=== PATIENT | male | born 1950 ===

== ENCOUNTER 2016-08-30 20:55 | Observation (INO) | payer MEDICARE ==
[2016-08-30 21:45] LABS: VENOUS BLOOD GAS BASE EXCESS 3.3 mmol/L (0.0-2.0); VENOUS BLOOD GAS PO2 94 mm/Hg (30-55); VENOUS BLOOD PH 7.39 (7.32-7.43)
--- NOTE | 2016-08-30 21:47 | ED PDOC ---
Arrival/HPI - General Chief Complaint: Shortness Of Breath Time Seen by Provider: 08/30/16 21:07 Historian: Patient - History of Present Illness Narrative History of Present Illness (Text): 08/30/16 21:42 A 66 year old male presents to the emergency department complaining of shortness of breath and fatigue for the past 2 weeks. Patient reports he went to the clinic and they told him his blood pressure was 50/90 and blood sugar was 182. Patient reports he almost passed out but denies any fall, chest pain or any other complaints at this time. Denies smoking. Symptom Onset: Sudden Symptom Course: Unchanged Activities at Onset: Rest Context: Home Past Medical History - Provider Review Nursing Documentation Reviewed: Yes - Infectious Disease Hx of Infectious Diseases: None - Tetanus Immunization Tetanus Immunization: Up to Date - Past Medical History Past Medical History: No Previous - Psychiatric Hx Psychophysiologic Disorder: No Hx Depression: No Hx Emotional Abuse: No Hx Physical Abuse: No Hx Substance Use: No - Past Surgical History Past Surgical History: No Previous - Anesthesia Hx Anesthesia: No Hx Anesthesia Reactions: No Hx Malignant Hyperthermia: No - Suicidal Assessment Feels Threatened In Home Enviroment: No Family/Social History - Physician Review Nursing Documentation Reviewed: Yes Family/Social History: No Known Family HX Smoking Status: Never Smoked Hx Alcohol Use: Yes Frequency of alcohol use: Socially Hx Substance Use: No Allergies/Home Meds Allergies/Adverse Reactions: Allergies No Known Allergies Allergy (Verified 05/09/16 21:36) Home Medications: Home Meds Medication Instructions Recorded Confirmed No Known Home Med 05/09/16 05/09/16 Review of Systems - Physician Review All systems were reviewed & negative as marked: Yes - Review of Systems Constitutional: Fatigue Respiratory: SOB Cardiovascular: absent: Chest Pain Physical Exam Vital Signs Reviewed: Yes Vital Signs Temp Pulse Resp BP Pulse Ox 08/31/16 01:55 68 18 151/82 H 95 08/30/16 23:24 98.0 F 69 18 129/81 98 08/30/16 22:55 65 18 132/79 93 L 08/30/16 20:55 98.2 F 70 18 129/81 96 Temperature: Afebrile Blood Pressure: Normal Pulse: Regular Respiratory Rate: Normal Appearance: Positive for: Well-Appearing, Non-Toxic, Comfortable Pain Distress: None Mental Status: Positive for: Alert and Oriented X 3 - Systems Exam Head: Present: Atraumatic, Normocephalic Pupils: Present: PERRL Extroacular Muscles: Present: EOMI Conjunctiva: Present: Normal Mouth: Present: Moist Mucous Membranes Neck: Present: Normal Range of Motion Respiratory/Chest: Present: Clear to Auscultation, Good Air Exchange. No: Respiratory Distress, Accessory Muscle Use Cardiovascular: Present: Regular Rate and Rhythm, Normal S1, S2. No: Murmurs Abdomen: Present: Normal Bowel Sounds. No: Tenderness, Distention, Peritoneal Signs Back: Present: Normal Inspection Upper Extremity: Present: Normal Inspection. No: Cyanosis, Edema Lower Extremity: Present: Normal Inspection. No: Edema Neurological: Present: GCS=15, CN II-XII Intact, Speech Normal Skin: Present: Warm, Dry, Normal Color. No: Rashes Psychiatric: Present: Alert, Oriented x 3, Normal Insight, Normal Concentration Medical Decision Making ED Course and Treatment: 08/30/16 21:40 Impression: A 66 year old male with shortness of breath and fatigue.left arm numbness will observe on tele for acs Differential Diagnosis included but are not limited to: Plan: -- EKG -- chest xray -- labs -- Reassess and disposition Prior Visits: Notes and results from previous visits were reviewed. Patient last reported to the emergency department on 04/14/16 for evaluation of lower back pain and right knee pain. Progress Notes: chest xray: No active disease, interpreted by me. EKG: Ordered, reviewed, and independently interpreted the EKG. Rate : 69 BPM Rhythm : NSR Interpretation : No ST-segment elevations or depressions, no T-wave inversions, normal intervals. 08/30/16 23:[address] Sandy, who agrees to admit patient to Tele obs. 08/31/16 05:13 - Lab Interpretations Lab Results: 08/30/16 21:30 08/30/16 21:30 Lab Results 08/30/16 21:30: D-Dimer, Quantitative 0.35 08/30/16 21:30: Sodium 142, Chloride 106, Potassium 3.6, Carbon Dioxide 27, Anion Gap 13, BUN 18, Creatinine 0.9, Est GFR ( Amer) > 60, Est GFR (Non- Af Amer) > 60, Random Glucose 95, Calcium 9.1, Total Bilirubin 0.7, AST 41, ALT 53, Alkaline Phosphatase 41, Lactate Dehydrogenase 493, Total Creatine Kinase 237 H, CK-MB (CK-2) 3.3, CK-MB (CK-2) % 1.4 L, Troponin I < 0.01, NT-Pro-B Natriuret Pep 140, Total Protein 7.1, Albumin 3.9, Globulin 3.1, Albumin/ Globulin Ratio 1.3 08/30/16 21:30: pO2 94 H, VBG pH 7.39, VBG pCO2 48.0, VBG HCO3 29.1 H, VBG Total CO2 30.6 H, VBG O2 Sat (Calc) 97.3 H, VBG Base Excess 3.3 H, VBG Potassium 3.6, Sodium 141.0, Chloride 108.0 H, Glucose 97, Lactate 1.5, FiO2 21.0, Venous Blood Potassium 3.6 08/30/16 21:30: WBC 6.7 D, RBC 4.15, Hgb 13.9 L, Hct 40.8 L, MCV 98.3, MCH 33.5 , MCHC 34.1, RDW 12.9, Plt Count 178, MPV 10.0, Gran % 58.6, Lymph % (Auto) 30.1 , [place] % (Auto) 9.0 H, Eos % (Auto) 2.0, Baso % (Auto) 0.3, Gran # 3.90, Lymph # 2.0, [place] # 0.6, Eos # 0.1, Baso # 0.02 I have reviewed the lab results: Yes - RAD Interpretation Radiology Orders: 08/30/16 21:20 CHEST PORTABLE [RAD] Stat - EKG Interpretation Interpreted by ED Physician: Yes Type: 12 lead EKG - Medication Orders Current Medication Orders: Acetaminophen (Tylenol 325mg Tab) 650 mg PO Q4H PRN PRN Reason: Pain, Mild (1-3) Discontinued Medications Aspirin (Ecotrin) 325 mg PO STAT STA Stop: 08/30/16 23:50 Last Admin: 08/31/16 00:19 Dose: 325 mg - Scribe Statement The provider has reviewed the documentation as recorded by the Marcia Cid Provider Scribe Attestation: All medical record entries made by the Nicholasibleonel were at my direction and personally dictated by me. I have reviewed the chart and agree that the record accurately reflects my personal performance of the history, physical exam, medical decision making, and the department course for this patient. I have also personally directed, reviewed, and agree with the discharge instructions and disposition. Disposition/Present on Arrival - Present on Arrival Any Indicators Present on Arrival: No History of DVT/PE: No History of Uncontrolled Diabetes: No Urinary Catheter: No History of Decub. Ulcer: No History Surgical Site Infection Following: None - Disposition Have Diagnosis and Disposition been Completed?: Yes Diagnosis: Coronary syndrome, acute Disposition: HOSPITALIZED Disposition Time: 22:00 Condition: FAIR
[2016-08-30 21:56] LABS: ALB/GLOB RATIO 1.3 (1.1-1.8); ALBUMIN 3.9 g/dL (3.0-4.8); ALT/SGPT 53 U/L (7-56); AST/SGOT 41 U/L (15-59); BLOOD UREA NITROGEN 18 mg/dL (7-21); CALCIUM 9.1 mg/dL (8.4-10.5); GFR AFRICAN-AMERICAN > 60; GFR NON-AFRICAN AMERICAN > 60
[2016-08-30 22:02] LABS: BASO # 0.02 K/mm3 (0.0-2.0); BASO % 0.3 % (0.0-3.0); EOS # 0.1 (0.0-0.7); GRAN % 58.6 % (50.0-68.0); HEMOGLOBIN 13.9 gm/dL (14.0-18.0); LYMPH % 30.1 % (22.0-35.0); MEAN CELL VOLUME 98.3 fL (80.0-105.0); MEAN CORPUSCULAR HEMOGLOBIN 33.5 pg (25.0-35.0); MEAN CORPUSCULAR HGB CONC 34.1 g/dl (31.0-37.0); MONO # 0.6 (0.1-0.6); PLATELET COUNT 178 10^3/uL (120.0-450.0); RBC 4.15 10^6/uL (3.5-6.1); RED CELL DISTRIBUTION WIDTH 12.9 % (11.5-14.5); WHITE BLOOD COUNT 6.7 10^3/ul (4.5-11.0)
[2016-08-30 22:07] LABS: B-TYPE NATRIURETIC PEPTIDE 140 pg/mL (0-450)
[2016-08-30 22:08] LABS: TROPONIN I < 0.01 ng/mL
[2016-08-30 22:11] LABS: CK-MB 3.3 ng/mL (0.0-3.6)
[2016-08-30] MEDS ORDERED: Aspirin 325 mg EC Tablets PO STA (23:49)
[2016-08-31 04:03] VITALS: RESP 20; BMI 39.2
[2016-08-31 10:37] LABS: ALB/GLOB RATIO 1.2 (1.1-1.8); ALBUMIN 3.6 g/dL (3.0-4.8); ALT/SGPT 43 U/L (7-56); AST/SGOT 41 U/L (15-59); BLOOD UREA NITROGEN 16 mg/dL (7-21); CALCIUM 8.9 mg/dL (8.4-10.5); GFR AFRICAN-AMERICAN > 60; GFR NON-AFRICAN AMERICAN > 60; HDL CHOLESTEROL 29 mg/dL (29-60)
[2016-08-31 10:48] LABS: LDL CHOLESTEROL 115 mg/dL (0-129)
[2016-08-31 10:57] LABS: FREE T4 1.06 ng/dL (0.78-2.19)
--- NOTE | 2016-08-31 11:14 | RAD ---
HISTORY: Shortness of breath COMPARISON: 04/04/2015. FINDINGS: LUNGS: No active pulmonary disease. PLEURA: No significant pleural effusion identified, no pneumothorax apparent. CARDIOVASCULAR: Cardiomegaly. No evidence of acute, significant cardiovascular disease. OSSEOUS STRUCTURES: No significant abnormalities. VISUALIZED UPPER ABDOMEN: Normal. OTHER FINDINGS: None. IMPRESSION: No active disease. No significant interval change compared to the prior examination(s).
[2016-08-31] MEDS ORDERED: Naproxen 550 mg Tab PO SCH (19:00)
--- NOTE | 2016-08-31 20:15 | CARD ---
APPROVED REPORT EKG Measurement Heart [id number] <Conclusion> Normal sinus rhythm Normal ECG
[2016-09-01 05:53] VITALS: O2SAT 94
--- NOTE | 2016-09-01 08:15 | CP.PCM.PN ---
Subjective - Date & Time of Evaluation Date of Evaluation: 09/01/16 Time of Evaluation: 07:00 - Subjective Subjective: Doing Well. No Chest Pain or Arm Pain. Objective - Vital Signs/Intake and Output Vital Signs (last 24 hours): Temp Pulse Resp BP Pulse Ox 97.9 F 59 L 20 139/84 94 L 09/01/16 05:51 09/01/16 05:51 09/01/16 05:51 09/01/16 05:51 09/01/16 05:51 Intake and Output: 09/01/16 09/01/16 06:59 18:59 Intake Total 420 Balance 420 - Medications Medications: Current Medications Acetaminophen (Tylenol 325mg Tab) 650 mg PO Q4H PRN PRN Reason: Pain, Mild (1-3) Naproxen (Anaprox Ds) 550 mg PO BIDPC HALLE Tramadol HCl (Ultram) 50 mg PO Q8H PRN PRN Reason: Pain, moderate (4-7) - Labs Labs: 08/31/16 10:20 - Constitutional Appears: Well - Head Exam Head Exam: ATRAUMATIC, NORMAL INSPECTION, NORMOCEPHALIC - Eye Exam Eye Exam: EOMI, Normal appearance, PERRL Pupil Exam: NORMAL ACCOMODATION, PERRL - ENT Exam ENT Exam: Mucous Membranes Moist, Normal Exam - Neck Exam Neck Exam: Full ROM, Normal Inspection. absent: Lymphadenopathy - Respiratory Exam Respiratory Exam: Clear to Ausculation Bilateral, NORMAL BREATHING PATTERN - Cardiovascular Exam Cardiovascular Exam: REGULAR RHYTHM, +S1, +S2. absent: Murmur - GI/Abdominal Exam GI & Abdominal Exam: Soft, Normal Bowel Sounds. absent: Tenderness - Rectal Exam Rectal Exam: NORMAL INSPECTION - Exam Exam: Circumcision, NORMAL INSPECTION External exam: NORMAL EXTERNAL EXAM Speculum exam: NORMAL SPECULUM EXAM Bimanual exam: NORMAL BIMANUAL EXAM - Extremities Exam Extremities Exam: Full ROM, Normal Capillary Refill, Normal Inspection. absent : Joint Swelling, Pedal Edema - Back Exam Back Exam: NORMAL INSPECTION - Neurological Exam Neurological Exam: Alert, Awake, CN II-XII Intact, Normal Gait, Oriented x3 - Psychiatric Exam Psychiatric exam: Normal Affect, Normal Mood - Skin Skin Exam: Dry, Intact, Normal Color, Warm Assessment and Plan (1) Arm pain Status: Acute (2) Dizziness Status: Acute - Assessment and Plan (Free Text) Plan: Clinically no chest pain. Feeling Better. Troponine Negative. Echo ws requested yestreday. Stress Test Later.
--- NOTE | 2016-09-01 10:12 | US ---
PROCEDURE: Bilateral carotid artery duplex ultrasound HISTORY: Carotid stenosis PHYSICIAN(S): Bradford Willard MD. TECHNIQUE: Duplex sonography and color-flow Doppler were used to evaluate the carotid bifurcations and limited segments of the vertebral arteries bilaterally. The exam is limited by body habitus and the patient's breathing pattern. FINDINGS: There is mild smooth hypoechoic plaque noted at the carotid bifurcations bilaterally. The peak systolic velocity in the proximal right internal carotid artery is 67 cm/sec. This corresponds to a 20 to 39% proximal right ICA stenosis. Normal systolic velocities are noted in the proximal right external carotid artery. There is antegrade flow in the right vertebral artery. The peak systolic velocity in the proximal left internal carotid artery is 52 cm/sec. This corresponds to a 20 to 39% proximal left ICA stenosis. Normal systolic velocities are noted in the proximal left external carotid artery. There is antegrade flow in the left vertebral artery. IMPRESSION: 1. Bilateral 20-39% proximal ICA stenoses. 2. Antegrade flow in both vertebral arteries.
[2016-09-01 12:20] VITALS: BP 114/79; PULSE 62; TEMP 98.4
== END 2016-09-01 15:01 | disposition home or self-care (01) ==
LOC: ED 20:55 → ERH 23:48 → 2RNO 08-31 02:42
PROVIDERS: ADMIT Internal Medicine; ATTEND Internal Medicine
DX: I95.9 Hypotension, unspecified (principal); R00.1 Bradycardia, unspecified; R55 Syncope and collapse; R20.0 Anesthesia of skin; R40.2412 Glasgow coma scale score 13-15, at arrival to emergency department; M79.603 Pain in arm, unspecified; R42 Dizziness and giddiness
CPT/HCPCS: 36415; 71010; 80053; 80061; 82550; 82553; 82803; 83615; 83880; 84439; 84443; 84484; 85025; 85378; 87040; 93005; 93880; 99285; G0378

== ENCOUNTER 2017-04-28 17:43 | Emergency (ER) | payer MEDICARE ==
[2017-04-28 18:20] VITALS: BMI 36.5
[2017-04-28 18:24] VITALS: RESP 18; TEMP 98.4
[2017-04-28] MEDS ORDERED: DiphenhydrAMINE 50 mg/ml Inj IVP STA (18:37)
--- NOTE | 2017-04-28 18:45 | ED PDOC ---
Arrival/HPI - General Chief Complaint: Headache Time Seen by Provider: 04/28/17 18:33 Historian: Patient - History of Present Illness Narrative History of Present Illness (Text): 04/28/17 18:44 A 66 year old male presents to the emergency department complaining of headache and mild chest discomfort. Patient reports to taking Aspirin. Patient also notes some nausea. Patient denies any fever or any other complaints at this time. PMD: None Symptom Onset: Sudden Symptom Course: Unchanged Activities at Onset: Rest Context: Home Past Medical History - Provider Review Nursing Documentation Reviewed: Yes - Infectious Disease Hx of Infectious Diseases: None - Tetanus Immunization Tetanus Immunization: Up to Date - Past Medical History Past Medical History: No Previous - Cardiac Hx Cardiac Disorders: No (bilateral lower extremity edema) Hx Angina: No Hx Cardiac Arrhythmia: No Hx Circulatory Problems: No Hx Congestive Heart Failure: No Hx Heart Murmur: No Hx Heart Transplant: No Hx Hypertension: No Hx Internal Defibrillator: No Hx Mitral Valve Prolapse: No Hx Pacemaker: No Hx Peripheral Edema: No Hx Peripheral Vascular Disease: No - Pulmonary Hx Respiratory Disorders: No Hx Asthma: No Hx Bronchitis: No Hx Chronic Obstructive Pulmonary Disease (COPD): No Hx Emphysema: No Hx Pneumonia: No Hx Respiratory Aspiration: No Hx Respiratory Tract Infection: No Hx Sleep Apnea: No Hx Tuberculosis: No - Neurological Hx Neurological Disorder: No Hx Alzheimer's Disease: No HX Cerebrovascular Accident: No Hx Dementia: No Hx Dizziness: No Hx Meningitis: No Hx Migraine: No Hx Parkinson's Disease: No Hx Seizures: No Hx Transient Ischemic Attacks (TIA): No - HEENT Hx HEENT Disorder: Yes (wears glasses) Hx Blind: No Hx Cataracts: No Hx Deafness: No Hx Difficulty Chewing: No Hx Epistaxis: No Hx Glaucoma: No Hx Macular Degeneration: No - Renal Hx Renal Disorder: No Hx Dialysis: No Hx Kidney Stones: No Hx Neurogenic Bladder: No Hx Pyelonephritis: No Hx Renal Cancer: No Hx Renal Failure: No - Endocrine/Metabolic Hx Endocrine Disorders: Yes (pre diabetes) Hx Adrenal Cancer: No Hx Diabetes Insipidus: No Hx Diabetes Mellitus Type 1: No Hx Diabetes Mellitus Type 2: No Hx Hyperthyroidism: No Hx Hypothyroidism: No Hx Systemic Lupus Erythematosus: No - Hematological/Oncological Hx Blood Disorders: No Hx AIDS: No Hx Anemia: No Hx Cancer: No Hx Chemotherapy: No Hx Cirrhosis: No Hx Hemophilia: No Hx Hepatitis A: No Hx Hepatitis B: No Hx Hepatitis C: No Hx Metastasis: No Hx Shingles: No Hx Sickle Cell Disease: No Hx Unexplained Bleeding: No - Integumentary Hx Dermatological Disorder: No Hx Basal Cell Carcinoma: No Hx Eczema: No Hx Melanoma: No Hx Psoriasis: No Hx Squamous Cell Carcinoma: No - Musculoskeletal/Rheumatological Hx Musculoskeletal Disorders: Yes Hx Arthritis: No Hx Back Pain: No Hx Degenerative Joint Disease: No Hx Falls: Yes Hx Fractures: No Hx Gout: No Hx Herniated Disk: Yes Hx Myasthenia Gravis: No Hx Osteoarthritis: No Hx Osteomyelitis: No Hx Osteoporosis: No Hx Rhabdomyolysis: No Hx Spinal Stenosis: No Hx Unsteady Gait: No - Gastrointestinal Hx Gastrointestinal Disorders: No Hx Colostomy: No Hx Crohn's Disease: No Hx Diverticulitis: No Hx Gall Bladder Disease: No Hx Gastroesophageal Reflux: No Hx Gastrointestinal Ulcer: No Hx Ileostomy: No Hx Liver Failure: No Hx Pancreatitis: No HX Swallowing Problems: No - Genitourinary/Gynecological Hx Genitourinary Disorders: No Hx Hematuria: No Hx Incontinence: No Hx Prostate Problems: No Hx Sexually Transmitted Diseases: No Hx Urinary Tract Infection: No - Psychiatric Hx Psychophysiologic Disorder: No Hx Depression: No Hx Emotional Abuse: No Hx Physical Abuse: No Hx Substance Use: No - Past Surgical History Past Surgical History: No Previous - Surgical History Hx Amputation: No Hx Appendectomy: No Hx Cardiac Catheterization: No Hx Cholecystectomy: No Hx Coronary Stent: No Hx Gastric Bypass Surgery: No Hx Hysterectomy: No Hx Joint Replacement: No Hx Kidney Transplant: No Hx Liver Transplant: No Hx Mastectomy: No Hx Musculoskeletal Surgery: No Hx Open Heart Surgery: No Hx Orthopedic Surgery: No Hx Splenectomy: No Hx Valve Replacement: No - Anesthesia Hx Anesthesia: No Hx Anesthesia Reactions: No Hx Malignant Hyperthermia: No - Suicidal Assessment Feels Threatened In Home Enviroment: No Family/Social History - Physician Review Nursing Documentation Reviewed: Yes Family/Social History: No Known Family HX Smoking Status: Never Smoked Hx Alcohol Use: Yes Hx Substance Use: No Allergies/Home Meds Allergies/Adverse Reactions: Allergies No Known Allergies Allergy (Verified 05/09/16 21:36) Home Medications: Home Meds Medication Instructions Recorded Confirmed No Known Home Med 05/09/16 04/28/17 Review of Systems - Physician Review All systems were reviewed & negative as marked: Yes - Review of Systems Constitutional: absent: Fevers Cardiovascular: Other (mild chest discomfort) Gastrointestinal: Nausea Neurological: Headache Physical Exam Vital Signs Reviewed: Yes Vital Signs Temp Pulse Resp BP Pulse Ox 04/28/17 20:28 66 18 150/92 H 98 04/28/17 18:23 98.4 F 64 18 174/92 H 96 Temperature: Afebrile Blood Pressure: Hypertensive Pulse: Regular Respiratory Rate: Normal Appearance: Positive for: Well-Appearing, Non-Toxic, Comfortable Pain Distress: None Mental Status: Positive for: Alert and Oriented X 3 - Systems Exam Head: Present: Atraumatic, Normocephalic Pupils: Present: PERRL Extroacular Muscles: Present: EOMI Conjunctiva: Present: Normal Mouth: Present: Moist Mucous Membranes Neck: Present: Normal Range of Motion Respiratory/Chest: Present: Clear to Auscultation, Good Air Exchange. No: Respiratory Distress, Accessory Muscle Use Cardiovascular: Present: Regular Rate and Rhythm, Normal S1, S2. No: Murmurs Abdomen: Present: Normal Bowel Sounds. No: Tenderness, Distention, Peritoneal Signs Back: Present: Normal Inspection Upper Extremity: Present: Normal Inspection. No: Cyanosis, Edema Lower Extremity: Present: Normal Inspection. No: Edema Neurological: Present: GCS=15, CN II-XII Intact, Speech Normal Skin: Present: Warm, Dry, Normal Color. No: Rashes Psychiatric: Present: Alert, Oriented x 3, Normal Insight, Normal Concentration Medical Decision Making ED Course and Treatment: 04/28/17 18:43 Impression: A 66 year old male with headache and mild chest discomfort. Plan: -- EKG -- chest xray -- labs -- CT head -- MaryannelLópezlan -- Reassess and disposition Prior Visits: Notes and results from previous visits were reviewed. Patient was last seen in the emergency department on 08/30/16 for evaluation of shortness of breath and fatigue. Progress Notes: 04/28/17 18:56 EKG: Ordered, reviewed, and independently interpreted the EKG. Rate : 69 BPM Rhythm : NSR Interpretation : No ST/T wave changes CT Head Without Intravenous Contrast FINDINGS: Brain: Hypodensity is identified within the inferior left cerebellar lobe, consistent with a subacute or chronic infarct. This is new compared to the prior study. The white-damian differentiation is otherwise preserved. No acute intracranial hemorrhage is seen. Midline shift: There is no midline shift. Ventricles: No ventriculomegaly. Bones/joints: The calvarium demonstrates no evidence for a depressed fracture. Soft tissues: No acute abnormality. Vasculature: There is atherosclerotic calcification of the intracranial internal carotid arteries. Sinuses: Unremarkable as visualized. No acute sinusitis. Mastoid air cells: No mastoid effusion. Other: Hyperdense hemorrhage is again identified within the right optic globe, suggestive of retinal or choroidal detachment. IMPRESSION: 1. Hypodensity is identified within the inferior left cerebellar lobe, consistent with a subacute or chronic infarct. This is new compared to the prior study. 2. No acute intracranial hemorrhage. 3. Hyperdense hemorrhage is again identified within the right optic globe, suggestive of retinal or choroidal detachment. 4. If further evaluation is clinically indicated, an MRI of the brain is recommended. Dictated and Authenticated by: Flavio Polanco MD 04/28/2017 8:10 PM Eastern Time ([place] & [place]) 04/28/17 21:[address] results in detail, explained that he had possibility of stroke. Patient states he "has things he has to take care of" and refuses to be admitted to the hospital. Patient is leaving against medical advice. Leaving Against Medical Advice (AMA): The patient is choosing to leave against medical advice. I have personally explained to the patient that choosing to do so may result in permanent bodily harm or . I have discussed at great length that without further evaluation and monitoring there may be unforeseen circumstances and/or deterioration causing permanent bodily harm or as a result of their choice. The patient is alert, oriented, and shows the mental capacity to make clear decisions regarding the patients health care at this time. The patient continues to wish to leave against medical advice. The patient has been advised that they should return to the emergency room immediately if they change their mind at any time, or if their condition begins to change or worsen in any way. 04/28/17 22:31 pt adivsed to take asa daily, advised can return to any er at any time with any concenr. i discussed his results extensviely with him and his family over multiple conversations in the er over extensive period of time. he understands risks. - Lab Interpretations Lab Results: 04/28/17 20:15 04/28/17 20:15 Lab Results 04/28/17 20:15: Sodium 138, Potassium 4.4, Chloride 101, Carbon Dioxide 26, Anion Gap 15, BUN 14, Creatinine 0.7 L, Est GFR ( Amer) > 60, Est GFR ( Non-Af Amer) > 60, Random Glucose 109, Calcium 8.8, Total Bilirubin 0.6, AST 51 , ALT 67 H, Alkaline Phosphatase 38, Lactate Dehydrogenase 491, Total Creatine Kinase 114, Troponin I 0.02 D, Total Protein 7.1, Albumin 3.9, Globulin 3.2, Albumin/Globulin Ratio 1.2 04/28/17 20:15: PT 12.3, INR 1.08, APTT 31.6 04/28/17 20:15: WBC 9.1 D, RBC 4.36, Hgb 14.7, Hct 42.9, MCV 98.4, MCH 33.7, MCHC 34.3, RDW 13.4, Plt Count 136, MPV 10.6, Gran % 73.2 H, Lymph % (Auto) 17.1 L, [place] % (Auto) 7.7 H, Eos % (Auto) 1.7, Baso % (Auto) 0.3, Gran # 6.63 H , Lymph # (Auto) 1.6, [place] # (Auto) 0.7 H, Eos # (Auto) 0.2, Baso # (Auto) 0.03 I have reviewed the lab results: Yes - RAD Interpretation Radiology Orders: 04/28/17 18:37 HEAD W/O CONTRAST [CT] Stat 04/28/17 18:38 CHEST ONE VIEW [RAD] Stat - EKG Interpretation Interpreted by ED Physician: Yes Type: 12 lead EKG - Medication Orders Current Medication Orders: Discontinued Medications Aspirin (Aspirin) 325 mg PO STAT STA Stop: 04/28/17 21:18 Last Admin: 04/28/17 21:33 Dose: 325 mg Diphenhydramine HCl (Benadryl) 25 mg IVP STAT STA Stop: 04/28/17 18:38 Last Admin: 04/28/17 20:22 Dose: 25 mg IVP Administration Document 04/28/17 20:22 CNR (Rec: 04/28/17 20:22 CNR [id number]) Charges for Administration # of IVP Administrations 1 Metoclopramide HCl (Reglan) 10 mg IVP STAT STA Stop: 04/28/17 18:38 Last Admin: 04/28/17 20:22 Dose: 10 mg IVP Administration Document 04/28/17 20:22 CNR (Rec: 04/28/17 20:22 CNR [id number]) Charges for Administration # of IVP Administrations 1 - Scribe Statement The provider has reviewed the documentation as recorded by the Nicholasibleonel Cid Provider Scribe Attestation: All medical record entries made by the Scribe were at my direction and personally dictated by me. I have reviewed the chart and agree that the record accurately reflects my personal performance of the history, physical exam, medical decision making, and the department course for this patient. I have also personally directed, reviewed, and agree with the discharge instructions and disposition. Disposition/Present on Arrival - Present on Arrival Any Indicators Present on Arrival: No History of DVT/PE: No History of Uncontrolled Diabetes: No Urinary Catheter: No History of Decub. Ulcer: No History Surgical Site Infection Following: None - Disposition Have Diagnosis and Disposition been Completed?: Yes Diagnosis: Stroke, Headache, Left against medical advice Disposition: AGAINST MEDICAL ADVICE Disposition Time: 10:00 Condition: UNKNOWN Discharge Instructions (ExitCare): Stroke, Headache, Adult (DC), Leaving Against Medical Advice Additional Instructions: you are leaving against medical advice. you are able to return to any er with any worsening symptoms or concerns. please see specialist. you will need further diagnostic workup. Referrals: [employer] [facility] Cash, [Primary Care Provider] - Follow up with primary Enoch Dduley MD [Staff Provider] - Follow up with primary Forms: [employer] ([place])
--- NOTE | 2017-04-28 20:11 | CT ---
EXAM: CT Head Without Intravenous Contrast EXAM DATE/TIME: 04/28/2017 6:37 PM CLINICAL HISTORY: The patient age is 66 years old and is male; Pain; Headache; Migraine; Additional info: MICHAELS Facility exam id and description: Ct heads head w/o contrast TECHNIQUE: Axial computed tomography images of the head/brain without intravenous contrast. All CT scans at this facility use one or more dose reduction techniques, viz.: automated exposure control; ma/kV adjustment per patient size (including targeted exams where dose is matched to indication; i.e. head); or iterative reconstruction technique. Coronal and sagittal reformatted images were created and reviewed. COMPARISON: CT - HEAD W/O CONTRAST 2015-04-04 11:29 FINDINGS: Brain: Hypodensity is identified within the inferior left cerebellar lobe, consistent with a subacute or chronic infarct. This is new compared to the prior study. The white-damian differentiation is otherwise preserved. No acute intracranial hemorrhage is seen. Midline shift: There is no midline shift. Ventricles: No ventriculomegaly. Bones/joints: The calvarium demonstrates no evidence for a depressed fracture. Soft tissues: No acute abnormality. Vasculature: There is atherosclerotic calcification of the intracranial internal carotid arteries. Sinuses: Unremarkable as visualized. No acute sinusitis. Mastoid air cells: No mastoid effusion. Other: Hyperdense hemorrhage is again identified within the right optic globe, suggestive of retinal or choroidal detachment. IMPRESSION: 1. Hypodensity is identified within the inferior left cerebellar lobe, consistent with a subacute or chronic infarct. This is new compared to the prior study. 2. No acute intracranial hemorrhage. 3. Hyperdense hemorrhage is again identified within the right optic globe, suggestive of retinal or choroidal detachment. 4. If further evaluation is clinically indicated, an MRI of the brain is recommended.
[2017-04-28 20:29] VITALS: BP 150/92; PULSE 66; O2SAT 98
[2017-04-28 20:38] LABS: BASO # 0.03 K/mm3 (0.0-2.0); BASO % 0.3 % (0.0-3.0); EOS # 0.2 (0.0-0.7); EOS % 1.7 % (1.5-5.0); GRAN # 6.63 (1.4-6.5); GRAN % 73.2 % (50.0-68.0); HEMOGLOBIN 14.7 g/dL (14.0-18.0); LYMPH # 1.6 (1.2-3.4); LYMPH % 17.1 % (22.0-35.0); MEAN CELL VOLUME 98.4 fl (80.0-105.0); MEAN CORPUSCULAR HEMOGLOBIN 33.7 pg (25.0-35.0); MEAN CORPUSCULAR HGB CONC 34.3 g/dl (31.0-37.0); MEAN PLATELET VOLUME 10.6 fl (7.0-11.0); MONO # 0.7 (0.1-0.6); MONO % 7.7 % (1.0-6.0); RBC 4.36 10^6/uL (3.5-6.1); RED CELL DISTRIBUTION WIDTH 13.4 % (11.5-14.5); WHITE BLOOD COUNT 9.1 10^3/ul (4.5-11.0)
[2017-04-28 20:44] LABS: ALB/GLOB RATIO 1.2 (1.1-1.8); ALBUMIN 3.9 g/dL (3.0-4.8); ALT/SGPT 67 U/L (7-56); AST/SGOT 51 U/L (17-59); BLOOD UREA NITROGEN 14 mg/dL (7-21); CALCIUM 8.8 mg/dL (8.4-10.5); GFR AFRICAN-AMERICAN > 60; GFR NON-AFRICAN AMERICAN > 60; INR 1.08 (0.93-1.08); PARTIAL THROMBOPLASTIN TIME 31.6 Seconds (25.1-36.5); PROTHROMBIN TIME 12.3 SECONDS (9.4-12.5)
[2017-04-28 20:55] LABS: TROPONIN I 0.02 ng/mL
--- NOTE | 2017-04-29 07:57 | RAD ---
PROCEDURE: CHEST RADIOGRAPH, 1 VIEW HISTORY: cp COMPARISON: Frontal chest radiograph 08/30/2016 FINDINGS: LUNGS: No acute cardiopulmonary disease appreciated. PLEURA: No pneumothorax or pleural fluid seen. CARDIOVASCULAR: Stable potential cardiomegaly though technical magnification remains possible in this frontal exam. OSSEOUS STRUCTURES: No significant abnormalities. VISUALIZED UPPER ABDOMEN: Normal. OTHER FINDINGS: None. IMPRESSION: No definite interval acute cardiopulmonary disease as discussed above. Cardiac silhouette remains prominent either intrinsically or by technical magnification. No pulmonary vascular derangement.
--- NOTE | 2017-04-29 12:34 | CARD ---
APPROVED REPORT EKG Measurement Heart [id number] <Conclusion> Normal sinus rhythm Left axis deviation Abnormal ECG
== END 2017-04-28 21:39 | disposition left against medical advice (07) ==
LOC: ED 17:43
DX: I63.9 Cerebral infarction, unspecified (principal); R51 Headache; Z79.82 Long term (current) use of aspirin
CPT/HCPCS: 70450; 71045; 80053; 82550; 83615; 84484; 85025; 85610; 85730; 93005; 96374; 96375; 99285; J1200; J2765

== ENCOUNTER 2017-04-30 09:50 | Inpatient (IN) | payer MEDICARE, OTHER ==
[2017-04-30 09:50] VITALS: BMI 36.5
--- NOTE | 2017-04-30 10:38 | ED PDOC ---
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 chronic on the CT head, advised to stay but he left by Leaving Against Medical Advice (AMA). Pt. is here today because he still has headache and unresolved dizziness, noted his BP is elevated and here today because he wants to continue of his care which the symptoms has not worsened, no slurred speech, no numbness or tingling, no palpitation, no chest pain, no rash, no neck pain, no rash, no other medical or psychological complaints. Past Medical History - Provider Review Nursing Documentation Reviewed: Yes - Infectious Disease Hx of Infectious Diseases: None - Tetanus Immunization Tetanus Immunization: Up to Date - Past Medical History Past Medical History: No Previous - Cardiac Hx Cardiac Disorders: No (bilateral lower extremity edema) Hx Angina: No Hx Cardiac Arrhythmia: No Hx Circulatory Problems: No Hx Congestive Heart Failure: No Hx Heart Murmur: No Hx Heart Transplant: No Hx Hypertension: No Hx Internal Defibrillator: No Hx Mitral Valve Prolapse: No Hx Pacemaker: No Hx Peripheral Edema: No Hx Peripheral Vascular Disease: No - Pulmonary Hx Respiratory Disorders: No Hx Asthma: No Hx Bronchitis: No Hx Chronic Obstructive Pulmonary Disease (COPD): No Hx Emphysema: No Hx Pneumonia: No Hx Respiratory Aspiration: No Hx Respiratory Tract Infection: No Hx Sleep Apnea: No Hx Tuberculosis: No - Neurological Hx Neurological Disorder: No Hx Alzheimer's Disease: No HX Cerebrovascular Accident: No Hx Dementia: No Hx Dizziness: No Hx Meningitis: No Hx Migraine: No Hx Parkinson's Disease: No Hx Seizures: No Hx Transient Ischemic Attacks (TIA): No - HEENT Hx HEENT Disorder: Yes (wears glasses) Hx Blind: No Hx Cataracts: No Hx Deafness: No Hx Difficulty Chewing: No Hx Epistaxis: No Hx Glaucoma: No Hx Macular Degeneration: No - Renal Hx Renal Disorder: No Hx Dialysis: No Hx Kidney Stones: No Hx Neurogenic Bladder: No Hx Pyelonephritis: No Hx Renal Cancer: No Hx Renal Failure: No - Endocrine/Metabolic Hx Endocrine Disorders: Yes (pre diabetes) Hx Adrenal Cancer: No Hx Diabetes Insipidus: No Hx Diabetes Mellitus Type 1: No Hx Diabetes Mellitus Type 2: No Hx Hyperthyroidism: No Hx Hypothyroidism: No Hx Systemic Lupus Erythematosus: No - Hematological/Oncological Hx Blood Disorders: No Hx AIDS: No Hx Anemia: No Hx Cancer: No Hx Chemotherapy: No Hx Cirrhosis: No Hx Hemophilia: No Hx Hepatitis A: No Hx Hepatitis B: No Hx Hepatitis C: No Hx Metastasis: No Hx Shingles: No Hx Sickle Cell Disease: No Hx Unexplained Bleeding: No - Integumentary Hx Dermatological Disorder: No Hx Basal Cell Carcinoma: No Hx Eczema: No Hx Melanoma: No Hx Psoriasis: No Hx Squamous Cell Carcinoma: No - Musculoskeletal/Rheumatological Hx Musculoskeletal Disorders: Yes Hx Arthritis: No Hx Back Pain: No Hx Degenerative Joint Disease: No Hx Falls: Yes Hx Fractures: No Hx Gout: No Hx Herniated Disk: Yes Hx Myasthenia Gravis: No Hx Osteoarthritis: No Hx Osteomyelitis: No Hx Osteoporosis: No Hx Rhabdomyolysis: No Hx Spinal Stenosis: No Hx Unsteady Gait: No - Gastrointestinal Hx Gastrointestinal Disorders: No Hx Colostomy: No Hx Crohn's Disease: No Hx Diverticulitis: No Hx Gall Bladder Disease: No Hx Gastroesophageal Reflux: No Hx Gastrointestinal Ulcer: No Hx Ileostomy: No Hx Liver Failure: No Hx Pancreatitis: No HX Swallowing Problems: No - Genitourinary/Gynecological Hx Genitourinary Disorders: No Hx Hematuria: No Hx Incontinence: No Hx Prostate Problems: No Hx Sexually Transmitted Diseases: No Hx Urinary Tract Infection: No - Psychiatric Hx Psychophysiologic Disorder: No Hx Depression: No Hx Emotional Abuse: No Hx Physical Abuse: No Hx Substance Use: No - Past Surgical History Past Surgical History: No Previous - Surgical History Hx Amputation: No Hx Appendectomy: No Hx Cardiac Catheterization: No Hx Cholecystectomy: No Hx Coronary Stent: No Hx Gastric Bypass Surgery: No Hx Hysterectomy: No Hx Joint Replacement: No Hx Kidney Transplant: No Hx Liver Transplant: No Hx Mastectomy: No Hx Musculoskeletal Surgery: No Hx Open Heart Surgery: No Hx Orthopedic Surgery: No Hx Splenectomy: No Hx Valve Replacement: No - Anesthesia Hx Anesthesia: No Hx Anesthesia Reactions: No Hx Malignant Hyperthermia: No - Suicidal Assessment Feels Threatened In Home Enviroment: No Family/Social History - Physician Review Nursing Documentation Reviewed: Yes Family/Social History: Unknown Family HX Smoking Status: Never Smoked Hx Alcohol Use: Yes Frequency of alcohol use: Socially Hx Substance Use: No Allergies/Home Meds Allergies/Adverse Reactions: Allergies No Known Allergies Allergy (Verified 04/30/17 10:23) Home Medications: Home Meds Medication Instructions Recorded Confirmed No Known Home Med 05/09/16 04/30/17 Review of Systems - Review of Systems Constitutional: absent: Fatigue, Fevers Eyes: absent: Vision Changes ENT: absent: Hearing Changes Respiratory: absent: SOB, Cough Cardiovascular: absent: Chest Pain Gastrointestinal: absent: Abdominal Pain, Nausea, Vomiting Musculoskeletal: absent: Arthralgias, Back Pain Skin: absent: Rash, Pruritis, Skin Lesions Neurological: Headache, Dizziness. absent: Focal Weakness, Gait Changes, Speech Changes, Facial Droop Psychiatric: absent: Anxiety, Depression Physical Exam Vital Signs Reviewed: Yes Vital Signs Temp Pulse Resp BP Pulse Ox 04/30/17 13:45 68 18 146/98 H 96 04/30/17 11:55 61 18 137/79 99 04/30/17 10:00 98.9 F 66 18 151/93 H 99 Temperature: Afebrile Blood Pressure: Hypertensive Pulse: Regular Respiratory Rate: Normal Appearance: Positive for: Well-Appearing, Non-Toxic Pain Distress: Severe Mental Status: Positive for: Alert and Oriented X 3 - Systems Exam Head: Present: Atraumatic, Normocephalic, Other (no temporal artery tenderness or jaw claudication). No: Tenderness, Ecchymosis, Abrasion, Laceration Pupils: Present: PERRL Extroacular Muscles: Present: Other (Eyes: rt. eye completely visual loss with vitreous hemorrage appearance and irregular pupil, lt. eye 20/30 with correction , FREOM with no entractment except poor response from the rt. eye due to the ruptured globed) Ears: Present: NORMAL TM, Normal Canal. No: Erythema Mouth: Present: Moist Mucous Membranes Pharnyx: Present: Normal. No: ERYTHEMA, EXUDATE, TONSILS ENLARGED Nose (External): Present: Atraumatic. No: Abrasion, Contusion Nose (Internal): Present: Normal Inspection, No Active Bleeding. No: Rhinorrhea Neck: Present: Normal Range of Motion, Trachea Midline. No: Meningeal Signs, MIDLINE TENDERNESS, Lymphadenopathy Respiratory/Chest: Present: Clear to Auscultation, Good Air Exchange. No: Respiratory Distress, Accessory Muscle Use, Wheezes, Decreased Breath Sounds, Rales, Retracting, Rhonchi Cardiovascular: Present: Regular Rate and Rhythm, Normal S1, S2. No: Murmurs Abdomen: Present: Normal Bowel Sounds. No: Tenderness, Distention, Peritoneal Signs, Rebound, Guarding Back: Present: Normal Inspection Upper Extremity: Present: Normal Inspection. No: Cyanosis, Edema Lower Extremity: Present: Normal Inspection. No: Edema Neurological: Present: GCS=15, CN II-XII Intact, Speech Normal, Motor Func Grossly Intact, Memory Normal Skin: Present: Warm, Dry, Normal Color. No: Rashes Psychiatric: Present: Alert, Oriented x 3, Normal Insight, Normal Concentration Medical Decision Making ED Course and Treatment: 04/30/17 10:43 -Labs/cardiac enzyme/lipid panel/hgba1c/ua/uds -ekg -cxr -MRI head w/o contrast -MRA head and neck w/o contrast -neurologist consult -phototypesetting equipment monitor -aspiration and fall risk precautious -discussed with Dr. Alexandre and he agreed on the plan of care -observe and reassess 04/30/17 10:43 -NIHSS is 2 (due to the chronic rt. visual disturbance) -I spoke to Dr. Dudley about this case and presentation, Dr. Dudley recommended MRI brain w/o contrast and MRA brain/neck w/o contrast/aspirin 325mg po, admit the patient for stroke work up, no indication for activation of code stroke or stroke alert. -Dr. Alexandre awared. 04/30/17 14:12 -EKG: NSR @ 61 BPM, no ST elevation or depression, T wave inversion on the lead III, compared with previous ekg. -Chest xray show no active disease -Labs are non-significant -Lipid panel show no acute findings -Troponin is negative -BNP is within normal limit -Coag within normal limit -Urinalysis show no UTI -Headache decreased with BP decreased as well. -Pt.'s pmd Dr. Monica Alilson doesn't come to this hospital with no admission privileage, pt. request Dr. Blackburn for admission. 04/30/17 14:47 -MRI confirmed acute vs. early subacute left cerebellum stroke. -MRI Neck Limited study as described. . Suspect narrowing of the proximal 50- 55 %. Carotid Doppler could be performed to confirm. -MRI Head -I discussed with Dr. Blackburn about this case/labs/radiology result/consult, agreed on admission to her service with Dr. Dudley on the consult. -I discussed with DR. Alexandre about the case/labs/radiology results, he will put in the admission order. 04/30/17 14:52 Reassessment Condition: Unchanged, Improving,but remains with symptoms - Critical Care Critical Care Minutes: 30 minutes Narrative Critical Care (Text): 04/30/17 12:18 -neurologist consult/subacute vs. chronic ischmic cerebellum with hypodensity, unresolved headache and dizziness - Lab Interpretations Lab Results: 04/30/17 11:00 04/30/17 11:00 Lab Results 04/30/17 12:04: Blood Type Confirm A POSITIVE 04/30/17 11:00: Blood Type A POSITIVE, Antibody Screen Negative, BBK History Checked No verified bt 04/30/17 11:00: WBC 7.4, RBC 4.46, Hgb 14.9, Hct 43.8, MCV 98.2, MCH 33.4, MCHC 34.0, RDW 13.3, Plt Count 144, MPV 10.8, Gran % 64.5, Lymph % (Auto) 23.0, [place] % (Auto) 10.6 H, Eos % (Auto) 1.6, Baso % (Auto) 0.3, Gran # 4.75, Lymph # (Auto ) 1.7, [place] # (Auto) 0.8 H, Eos # (Auto) 0.1, Baso # (Auto) 0.02 04/30/17 11:00: Sodium 140, Potassium 4.1, Chloride 104, Carbon Dioxide 26, Anion Gap 14, BUN 13, Creatinine 0.7 L, Est GFR ( Amer) > 60, Est GFR ( Non-Af Amer) > 60, Random Glucose 130 H, Calcium 9.2, Total Bilirubin 0.5, AST 39, ALT 60 H, Alkaline Phosphatase 39, Lactate Dehydrogenase 540, Total Creatine Kinase 124, Troponin I < 0.01 D, NT-Pro-B Natriuret Pep 201, Total Protein 7.5, Albumin 4.1, Globulin 3.4, Albumin/Globulin Ratio 1.2, Triglycerides 68, Cholesterol 157, LDL Cholesterol Direct 108, HDL Cholesterol 35 04/30/17 11:00: Urine Color Light yellow, Urine Appearance Clear, Urine pH 6.0, Ur Specific [place] 1.015, Urine Protein Negative, Urine Glucose (UA) Negative, Urine Ketones Negative, Urine Blood Negative, Urine Nitrate Negative, Urine Bilirubin Negative, Urine Urobilinogen 0.2, Ur Leukocyte Esterase Negative 04/30/17 11:00: PT 12.2, INR 1.06, APTT 31.7 I have reviewed the lab results: Yes Interpretation: All labs normal - RAD Interpretation Radiology Orders: 04/30/17 10:32 CHEST PORTABLE [RAD] Stat BRAIN W & WO CONTRAST [MRI] Stat 04/30/17 10:36 MRA HEAD WITHOUT CONTRAST [MRI] Stat MRA NECK WITHOUT CONTRAST [MRI] Stat Chest xray: MRI Brain: FINDINGS: No acute parenchymal HEMORRHAGE: No acute parenchymal, subarachnoid nor extra-axial hemorrhage. DWI: There is an acute - early subacute infarct seen in the left anterior inferior and medial cerebellar hemisphere and inferomedial vermis, likely left AICA distribution. BRAIN PARENCHYMA: There are a few tiny chronic appearing lacunar type infarcts scattered about the deep and subcortical white matter both cerebral hemispheres. Mild central volume loss evidenced by disproportionate enlargement of the ventricles as compared the sulci. . ENHANCEMENT: No evidence of abnormal enhancement. VENTRICLES: No obstructive hydrocephalus. CRANIUM: Unremarkable. ORBITS: Re- demonstrated is what may represent retinal detachment right globe of. Fundoscopic examination recommended to exclude other pathology. PARANASAL SINUSES/MASTOIDS: Mild mucosal thickening within the ethmoid air complex. VASCULAR SYSTEM: Visualized major vascular flow voids at skull base patent. OTHER FINDINGS: None . IMPRESSION: Acute/early subacute left cerebellar infarct changes. No evidence of acute intracranial hemorrhage. There are several tiny at chronic appearing lacunar type infarcts scattered about the deep and subcortical white matter both cerebral hemispheres. Moderate on central volume loss. CTA Head: CTA Neck: RIGHT CAROTID ARTERIES: Common Carotid Artery: Normal. Carotid Bifurcation: Normal. Internal Carotid Artery there appears to be narrowing of the proximal right internal carotid artery estimated at approximately 55-60 %. External Carotid Artery (proximal branches): Normal. LEFT CAROTID ARTERIES: Common Carotid Artery: Normal. Carotid Bifurcation: Normal. Internal Carotid Artery:Normal. External Carotid Artery (proximal branches): Normal. VERTEBRAL ARTERIES: Right Vertebral Artery: Normal. Left Vertebral Artery: Normal. OTHER FINDINGS: None. IMPRESSION: Limited study as described. . Suspect narrowing of the proximal 50-55 %. Carotid Doppler could be performed to confirm. [employer]: Radiologist - EKG Interpretation EKG Interpretation (Text): 04/30/17 10:47 -EKG: NSR @ 61 BPM, no ST elevation or depression, T wave inversion on the lead III, compared with previous ekg. Interpreted by ED Physician: Yes Type: 12 lead EKG Comparison: Com.w/previous EKG - Medication Orders Current Medication Orders: Sodium Chloride (Sodium Chloride 0.9%) 1,000 mls @ 100 mls/hr IV [facility] Last Admin: 04/30/17 10:53 Dose: Discontinued Medications Aspirin (Aspirin) 325 mg PO STAT STA Stop: 04/30/17 10:33 Last Admin: 04/30/17 10:52 Dose: 325 mg Morphine Sulfate (Morphine) 4 mg IVP STAT STA Stop: 04/30/17 10:41 Last Admin: 04/30/17 10:52 Dose: 4 mg MAR Pain Assessment Document 04/30/17 10:52 ADELITA (Rec: 04/30/17 10:52 [facility] [id number]) Pain Reassessment Is this a pain reassessment? No Sleep Is patient sleeping during reassessment? No Presence of Pain Presence of Pain Yes IVP Administration Document 04/30/17 10:52 ADELITA (Rec: 04/30/17 10:52 [facility] [id number]) Charges for Administration # of IVP Administrations 1 NIHSS Scale ([place]) Time Performed: 10:25 - How Severe is the Stoke Baseline Level of Consciousness: 0=Alert LOC to Questions: 0=Both comments correct LOC to commands: 0=Obeys both correctly Best Gaze: 0=Normal Visual: 2=Complete hemianopia Facial: 0=Normal Motor Arm - Left: 0=No drift Motor Arm - Right: 0=No drift Motor Leg - Left: 0=No drift Motor Leg - Right: 0=No drift Limb Ataxia: 0=Absent Sensory: 0=Normal Best Language: 0=No aphasia Dysarthia: 0=Normal articulation Extinction & Inattention (Neglect): 0=Normal, no object Score: 2 Risk Level: Minor Stroke Risk rTPA Inclusion/Exclusion - Refusal of Treatment Patient Refused Treatment: No - Inclusion Criteria for Altepase Patient is 18 years or Older: Yes The Clinical Diagnosis of Ischemic Stroke That is Causing a Potentially Disabling Neurological Deficit: Yes Time of Onset is Well Established to be Less Than 270 Minute Before Treatment Would Begin: No Risk/Benefit Discussed With Patient/Family Member Present: Yes - Exclusion Criteria for Altepase Uncontrolled Hypertension at Time of Treatment (Systolic BP above 185 or Diastolic BP above 110 mmHg): No Active Internal Bleeding: No Known Bleeding Diathesis Including but Not Limited to: Platelets Below 100,000/ mm,PTT Above 40 sec After Heparin Use, Current Use of Oral Anitcoagulant With INR Greater Than 1.7 or PT Greater Than 15 secs: No Evidence of an Intracranial Hemorrhage: No Evidence of Major Acute Infarct With Signs Greater Than 1/3 MCA Territory: No Suspicion of Subarachnoid Hemorrhage on Pretreatment Evaluation Even if CT Head Negative For Hemorrhage: No - Warning to TPA With Conditions Following Conditions Weighed Against Anticipated Benefit: Yes Condition: Stroke Serevity Too Mild, Care Team Unable to Determine Eligibilty - PA / SENIOR ARCHITECT/DESIGN MANAGER / Resident Statement MD/DO has reviewed & agrees with the documentation as recorded. Disposition/Present on Arrival - Present on Arrival Any Indicators Present on Arrival: No History of DVT/PE: No History of Uncontrolled Diabetes: No Urinary Catheter: No History of Decub. Ulcer: No History Surgical Site Infection Following: None - Disposition Have Diagnosis and Disposition been Completed?: Yes Diagnosis: Dizziness, Headache, Cerebellar stroke syndrome Disposition: HOSPITALIZED Disposition Time: 12:17 Patient Plan: Admission, Telemetry Patient Problems: Current Active Problems Problem Status Onset Cerebellar stroke syndrome Acute Dizziness Acute Headache Acute Ischemic stroke Acute Condition: STABLE Referrals: Monica Allison MD [Primary Care Provider] - Follow up with primary
[2017-04-30] MEDS ORDERED: Morphine 4 mg/ml ISec IVP STA (10:40)
[2017-04-30] MEDS ORDERED: Sodium Chloride 0.9% 1,000 ML IV SCH (10:45)
[2017-04-30] MEDS: Sodium Chloride 0.9% 1,000 ML IV SCH ×2 (10:53→17:35)
[2017-04-30 11:28] LABS: BASO # 0.02 K/mm3 (0.0-2.0); BASO % 0.3 % (0.0-3.0); EOS # 0.1 (0.0-0.7); EOS % 1.6 % (1.5-5.0); GRAN # 4.75 (1.4-6.5); GRAN % 64.5 % (50.0-68.0); HEMOGLOBIN 14.9 g/dL (14.0-18.0); LYMPH # 1.7 (1.2-3.4); MEAN CELL VOLUME 98.2 fl (80.0-105.0); MEAN CORPUSCULAR HEMOGLOBIN 33.4 pg (25.0-35.0); MEAN PLATELET VOLUME 10.8 fl (7.0-11.0); MONO # 0.8 (0.1-0.6); MONO % 10.6 % (1.0-6.0); RBC 4.46 10^6/uL (3.5-6.1); RED CELL DISTRIBUTION WIDTH 13.3 % (11.5-14.5); URINE BILIRUBIN NEGATIVE (NEGATIVE); URINE BLOOD NEGATIVE (NEGATIVE); URINE GLUCOSE (UA) NEGATIVE (NEGATIVE); URINE LEUKOCYTE ESTERASE NEGATIVE Leu/uL (NEGATIVE); URINE NITRATE NEGATIVE (NEGATIVE); URINE PROTEIN NEGATIVE mg/dL (<30 mg/dL); URINE UROBILINOGEN 0.2 E.U./dL (<1 E.U./dL); WHITE BLOOD COUNT 7.4 10^3/ul (4.5-11.0)
[2017-04-30 11:33] LABS: URINE APPEARANCE CLEAR (CLEAR); URINE COLOR LIGHT YELLOW (YELLOW)
[2017-04-30 11:39] LABS: INR 1.06 (0.93-1.08); PARTIAL THROMBOPLASTIN TIME 31.7 Seconds (25.1-36.5); PROTHROMBIN TIME 12.2 SECONDS (9.4-12.5)
[2017-04-30 11:40] LABS: ALB/GLOB RATIO 1.2 (1.1-1.8); ALBUMIN 4.1 g/dL (3.0-4.8); ALT/SGPT 60 U/L (7-56); AST/SGOT 39 U/L (17-59); BLOOD UREA NITROGEN 13 mg/dL (7-21); CALCIUM 9.2 mg/dL (8.4-10.5); GFR AFRICAN-AMERICAN > 60; GFR NON-AFRICAN AMERICAN > 60; HDL CHOLESTEROL 35 mg/dL (29-60)
--- NOTE | 2017-04-30 11:45 | CARD ---
APPROVED REPORT EKG Measurement Heart [id number] ID [id number] <Conclusion> Normal sinus rhythm Left axis deviation
[2017-04-30 11:48] LABS: LDL CHOLESTEROL 108 mg/dL (0-129)
[2017-04-30 11:51] LABS: B-TYPE NATRIURETIC PEPTIDE 201 pg/mL (0-450); TROPONIN I < 0.01 ng/mL
--- NOTE | 2017-04-30 11:54 | CP.PCM.CON ---
History of Present Illness - History of Present Illness History of Present Illness: Mr. Bey is a 66-year-old man who states that he does not have any past medical history, but had lost weight (about 30 lbs), taking a diet pill given to him by his friend. He is no longer taking this medication. He developed headache and balance difficulty on Friday and came to the ED. CT scan of the head showed a left cerebellar hypodensity concerning for a subacute stroke. He left the ED. Today, he came back for dizziness and worsening headache. Review of Systems - Review of Systems All systems: reviewed and no additional remarkable complaints except Past Patient History - Infectious Disease Hx of Infectious Diseases: None - Tetanus Immunizations Tetanus Immunization: Up to Date - Past Social History Smoking Status: Never Smoked - CARDIAC Hx Cardiac Disorders: No (bilateral lower extremity edema) Hx Angina: No Hx Cardia Arrhythmia: No Hx Circulatory Problems: No Hx Congestive Heart Failure: No Hx Heart Murmur: No Hx Heart Transplant: No Hx Hypertension: No Hx Internal Defibrillator: No Hx Mitral Valve Prolapse: No Hx Pacemaker: No Hx Peripheral Edema: No Hx Peripheral Vascular Disease: No - PULMONARY Hx Respiratory Disorders: No Hx Asthma: No Hx Bronchitis: No Hx Chronic Obstructive Pulmonary Disease (COPD): No Hx Emphysema: No Hx Pneumonia: No Hx Respiratory Aspiration: No Hx Respiratory Tract Infection: No Hx Sleep Apnea: No Hx Tuberculosis: No - NEUROLOGICAL Hx Neurological Disorder: No Hx Alzheimer's Disease: No HX Cerebrovascular Accident: No Hx Dementia: No Hx Dizziness: No Hx Meningitis: No Hx Migraine: No Hx Parkinson's Disease: No Hx Seizures: No Hx Transient Ischemic Attacks (TIA): No - HEENT Hx HEENT Problems: Yes (wears glasses) Hx Blind: No Hx Cataracts: No Hx Deafness: No Hx Difficulty Chewing: No Hx Epistaxis: No Hx Glaucoma: No Hx Macular Degeneration: No - RENAL Hx Chronic Kidney Disease: No Hx Dialysis: No Hx Kidney Stones: No Hx Neurogenic Bladder: No Hx Pyelonephritis: No Hx Renal (Kidney) Cancer: No Hx Renal Failure: No - ENDOCRINE/METABOLIC Hx Endocrine Disorders: Yes (pre diabetes) Hx Adrenal Cancer: No Hx Diabetes Insipidus: No Hx Diabetes Mellitus Type 1: No Hx Diabetes Mellitus Type 2: No Hx Hyperthyroidism: No Hx Hypothyroidism: No Hx Systemic Lupus Erythematosus: No - HEMATOLOGICAL/ONCOLOGICAL Hx Blood Disorders: No Hx AIDS: No Hx Anemia: No Hx Cancer: No Hx Chemotherapy: No Hx Cirrhosis: No Hx Hemophilia: No Hx Hepatitis A: No Hx Hepatitis B: No Hx Hepatitis C: No Hx Metastesis: No Hx Shingles: No Hx Sickle Cell Disease: No Hx Unexplained Bleeding: No - INTEGUMENTARY Hx Dermatological Problems: No Hx Basil Cell: No Hx Eczema: No Hx Melanoma: No Hx Psoriasis: No Hx Squamous Cell: No - MUSCULOSKELETAL/RHEUMATOLOGICAL Hx Musculoskeletal Disorders: Yes Hx Arthritis: No Hx Back Pain: No Hx Degenerative Joint Disease: No Hx Falls: Yes Hx Fractures: No Hx Gout: No Hx Herniated Disk: Yes Hx Myasthenia Gravis: No Hx Osteoarthritis: No Hx Osteomyelitis: No Hx Osteoporosis: No Hx Rhabdomyolysis: No Hx Spinal Stenosis: No Hx Unsteady Gait: No - GASTROINTESTINAL Hx Gastrointestinal Disorders: No Hx Colostomy: No Hx Crohn's Disease: No Hx Diverticulitis: No Hx Gall Bladder Disease: No Hx Gastroesophageal Reflux: No Hx Ileostomy: No Hx Liver Failure: No Hx Pancreatitis: No HX Swallowing Problems: No - GENITOURINARY/GYNECOLOGICAL Hx Genitourinary Disorders: No Hx Hematuria: No Hx Incontinence: No Hx Prostate Problems: No Hx Sexually Transmitted Disorders: No Hx Urinary Tract Infection: No - PSYCHIATRIC Hx Psychophysiologic Disorder: No Hx Depression: No Hx Emotional Abuse: No Hx Physical Abuse: No Hx Substance Use: No - SURGICAL HISTORY Hx Amputation: No Hx Appendectomy: No Hx Cardiac Catheterization: No Hx Cholecystectomy: No Hx Coronary Stent: No Hx Gastric Bypass Surgery: No Hx Hysterectomy: No Hx Joint Replacement: No Hx Kidney Transplant: No Hx Liver Transplant: No Hx Mastectomy: No Hx Musculoskeletal Surgery: No Hx Open Heart Surgery: No Hx Orthopedic Surgery: No Hx Splenectomy: No Hx Valve Replacement: No - ANESTHESIA Hx Anesthesia: No Hx Anesthesia Reactions: No Hx Malignant Hyperthermia: No Meds Allergies/Adverse Reactions: Allergies Allergy/AdvReac Type Severity Reaction Status Date / Time No Known Allergies Allergy Verified 04/30/17 10:23 - Medications Medications: Current Medications Sodium Chloride (Sodium Chloride 0.9%) 1,000 mls @ 100 mls/hr IV .Q10H HALLE Last Admin: 04/30/17 10:53 Dose: Not Given Physical Exam - Neurological Exam Neurological exam: Abnormal Gait, Alert, CN II-XII Intact, Oriented x3 Additional comments: reflexes are brisk on the left with fine motor deficits and ataxia. gait is ataxic. There is a pronator drift on the left. NIHSS = 2 Results - Vital Signs Recent Vital Signs: Last Vital Signs Temp 98.9 F 04/30/17 10:00 Pulse 66 04/30/17 10:00 Resp 18 04/30/17 10:00 BP 151/93 H 04/30/17 10:00 Pulse Ox 99 04/30/17 10:00 - Labs Result Diagrams: 04/30/17 11:00 04/30/17 11:00 Labs: Laboratory Results - last 24 hr 04/30/17 04/30/17 04/30/17 11:00 11:00 11:00 WBC RBC Hgb Hct MCV MCH MCHC RDW Plt Count MPV Gran % Lymph % (Auto) Worth % (Auto) Eos % (Auto) Baso % (Auto) Gran # Lymph # (Auto) Worth # (Auto) Eos # (Auto) Baso # (Auto) PT 12.2 INR 1.06 APTT 31.7 Sodium 140 Potassium 4.1 Chloride 104 Carbon Dioxide 26 Anion Gap 14 BUN 13 Creatinine 0.7 L Est GFR ( Amer) > 60 Est GFR (Non-Af Amer) > 60 Random Glucose 130 H Calcium 9.2 Total Bilirubin 0.5 AST 39 ALT 60 H Alkaline Phosphatase 39 Lactate Dehydrogenase 540 Total Creatine Kinase 124 Total Protein 7.5 Albumin 4.1 Globulin 3.4 Albumin/Globulin Ratio 1.2 Triglycerides 68 Cholesterol 157 HDL Cholesterol 35 Urine Color Light yellow Urine Appearance Clear Urine pH 6.0 Ur Specific Sutton 1.015 Urine Protein Negative Urine Glucose (UA) Negative Urine Ketones Negative Urine Blood Negative Urine Nitrate Negative Urine Bilirubin Negative Urine Urobilinogen 0.2 Ur Leukocyte Esterase Negative BBK History Checked 04/30/17 04/30/17 11:00 11:00 WBC 7.4 RBC 4.46 Hgb 14.9 Hct 43.8 MCV 98.2 MCH 33.4 MCHC 34.0 RDW 13.3 Plt Count 144 MPV 10.8 Gran % 64.5 Lymph % (Auto) 23.0 Worth % (Auto) 10.6 H Eos % (Auto) 1.6 Baso % (Auto) 0.3 Gran # 4.75 Lymph # (Auto) 1.7 Worth # (Auto) 0.8 H Eos # (Auto) 0.1 Baso # (Auto) 0.02 PT INR APTT Sodium Potassium Chloride Carbon Dioxide Anion Gap BUN Creatinine Est GFR ( Amer) Est GFR (Non-Af Amer) Random Glucose Calcium Total Bilirubin AST ALT Alkaline Phosphatase Lactate Dehydrogenase Total Creatine Kinase Total Protein Albumin Globulin Albumin/Globulin Ratio Triglycerides Cholesterol HDL Cholesterol Urine Color Urine Appearance Urine pH Ur Specific Sutton Urine Protein Urine Glucose (UA) Urine Ketones Urine Blood Urine Nitrate Urine Bilirubin Urine Urobilinogen Ur Leukocyte Esterase BBK History Checked No verified bt Assessment & Plan (1) Ischemic stroke Assessment and Plan: The patient has a left cerebellar subacute to chronic ischemic stroke. He also complains of headache, likely due to developing edema. I recommend the following for stroke work-up and treatment. 1. Telemetry 2. MRI of the brain and MRA of the head/neck without contrast 3. Echocardiogram with bubble study 4. Aspirin 325 loading dose and Plavix 300 loading dose, and continue Aspirin 81 mg daily and Plavix 75 mg daily for 21 days, per the CHANCE trial, and then continue only aspirin 81 mg monotherapy, daily. 5. Check HbA1c, Lipid panel, TSH, B12, folate, hypercoagulable work-up 6. Start Lipitor 40 mg daily to maintain LDL< 70 mg/dL 7. PT/OT eval and treatment 8. Fluids with NS at 100 mL/hr 9. May normalize BP since symptoms and stroke is subacute to chronic 10. Case management consult Thank you. Status: Acute
[2017-04-30] MEDS ORDERED: Gadodiamide 287 MG/ML VIAL (20ML) IV ONE (13:30)
--- NOTE | 2017-04-30 13:47 | RAD ---
HISTORY: medical clearance COMPARISON: Comparison chest 04/28/2017. FINDINGS: LUNGS: Poor inspiration with low lung volumes, crowded bronchovascular markings and mild bibasilar atelectasis. Central pulmonary vasculature is also increased likely due to low lung volumes PLEURA: No significant pleural effusion identified, no pneumothorax apparent. CARDIOVASCULAR: Heart remains enlarged. Aorta ectatic and uncoiled. OSSEOUS STRUCTURES: Questionable left cervical rib. VISUALIZED UPPER ABDOMEN: Normal. OTHER FINDINGS: None. IMPRESSION: Poor inspiration with low lung volumes, crowded bronchovascular markings and mild bibasilar atelectasis. Central pulmonary vasculature is also increased likely due to low lung volumes
--- NOTE | 2017-04-30 14:23 | MRI ---
PROCEDURE: MRI of the brain dated 04/30/2017. HISTORY: Subacute vs. chronic cerebellum infarct COMPARISON: Comparison made with prior CT scan of the brain dated 04/28/2017. Correlation also made with concurrent MRA brain. TECHNIQUE: Multiplanar, multisequence MR images of the brain were obtained with and without intravenous contrast enhancement. 20 cc Omniscan injected for this examination. FINDINGS: No acute parenchymal HEMORRHAGE: No acute parenchymal, subarachnoid nor extra-axial hemorrhage. DWI: There is an acute - early subacute infarct seen in the left anterior inferior and medial cerebellar hemisphere and inferomedial vermis, likely left AICA distribution. BRAIN PARENCHYMA: There are a few tiny chronic appearing lacunar type infarcts scattered about the deep and subcortical white matter both cerebral hemispheres. Mild central volume loss evidenced by disproportionate enlargement of the ventricles as compared the sulci. . ENHANCEMENT: No evidence of abnormal enhancement. VENTRICLES: No obstructive hydrocephalus. CRANIUM: Unremarkable. ORBITS: Re- demonstrated is what may represent retinal detachment right globe of. Fundoscopic examination recommended to exclude other pathology. PARANASAL SINUSES/MASTOIDS: Mild mucosal thickening within the ethmoid air complex. VASCULAR SYSTEM: Visualized major vascular flow voids at skull base patent. OTHER FINDINGS: None . IMPRESSION: Acute/early subacute left cerebellar infarct changes. No evidence of acute intracranial hemorrhage. There are several tiny at chronic appearing lacunar type infarcts scattered about the deep and subcortical white matter both cerebral hemispheres. Moderate on central volume loss. Note these findings were discussed with emergency room MAGALI Chappell at approximately 2:20 p.m. with written down and read back verification
--- NOTE | 2017-04-30 14:35 | MRI ---
PROCEDURE: MR Angiography of the neck without contrast HISTORY: hypodensity of the cerebellum, headache/dizziness COMPARISON: None available. TECHNIQUE: 2D and 3D [id number] angiography of the neck was performed. Rotating maximum intensity projection images of the cervical carotid and vertebral arteries were generated. The origins of the common carotid arteries were not visualized, which is a limitation inherent to the non-contrast time of flight technique. Study is limited due to motion artifact results in stairstep/stacking appearance of the cervical vasculature FINDINGS: RIGHT CAROTID ARTERIES: Common Carotid Artery: Normal. Carotid Bifurcation: Normal. Internal Carotid Artery there appears to be narrowing of the proximal right internal carotid artery estimated at approximately 55-60 %. External Carotid Artery (proximal branches): Normal. LEFT CAROTID ARTERIES: Common Carotid Artery: Normal. Carotid Bifurcation: Normal. Internal Carotid Artery:Normal. External Carotid Artery (proximal branches): Normal. VERTEBRAL ARTERIES: Right Vertebral Artery: Normal. Left Vertebral Artery: Normal. OTHER FINDINGS: None. IMPRESSION: Limited study as described. . Suspect narrowing of the proximal 50-55 %. Carotid Doppler could be performed to confirm.
--- NOTE | 2017-04-30 15:02 | MRI ---
PROCEDURE: MRA brain dated 04/30/2017. HISTORY: Hypodensity y of the cerebellum, headache/dizziness COMPARISON: Correlation made with concurrent MRI of the brain and MRA neck TECHNIQUE: 3D time of flight MR angiography of the intracranial arteries was performed. Rotating maximum intensity projection images were generated. FINDINGS: INTERNAL CAROTID ARTERIES: Unremarkable. The skull base, petrous, cavernous and supraclinoid segments are bilaterally widely patient. ANTERIOR CEREBRAL ARTERIES: Unremarkable. A1 and A2 segments are widely patent. Smaller distal branches unremarkable, as visualized. MIDDLE CEREBRAL ARTERIES: Unremarkable. M1 and M2 segments are widely patent. Perisylvian branches grossly symmetric. POSTERIOR CIRCULATION: Basilar Artery: Unremarkable. Distal Vertebral Arteries: Unremarkable. Posterior Cerebral Arteries: Unremarkable. Posterior Inferior Cerebellar Arteries: Unremarkable. ANEURYSM/ VASCULAR MALFORMATIONS: No evidence of large aneurysm nor vascular malformation. OTHER FINDINGS: None. IMPRESSION: Unremarkable MR angiography of the brain. . No evidence of large aneurysm nor vascular malformation.
[2017-04-30] MEDS ORDERED: Pneumococcal 23-Valent Vaccine IM ONE (18:57)
[2017-04-30] MEDS ORDERED: Influenza Vaccine 60 mcg/0.5 mL SYR (4YR UP) IM ONE (18:57)
--- NOTE | 2017-04-30 23:13 | CP.PCM.PN ---
Subjective - Date & Time of Evaluation Date of Evaluation: 04/30/17 Time of Evaluation: 23:11 - Subjective Subjective: Earlier , tylenol 975 mg PO was ordered for headache. Had no other complaints. Patient had headache again. When went to see patient , he was asleep. 97.3*F 141/96 Medical record was reviewed. This 66 year old male was admitted with head ache and dizziness, CVA. PMH:Right vitreous hemorrhage, right eye blindness, refractory error , prediabetic, history of alcohol use. Objective - Vital Signs/Intake and Output Vital Signs (last 24 hours): Temp Pulse Resp BP Pulse Ox 97.8 F 59 L 18 145/81 99 04/30/17 18:00 04/30/17 18:00 04/30/17 18:00 04/30/17 18:00 04/30/17 17:27 - Medications Medications: Current Medications Aspirin (Aspirin Chewable) 81 mg PO DAILY HALLE Clopidogrel Bisulfate (Plavix) 75 mg PO DAILY HALLE Sodium Chloride (Sodium Chloride 0.9%) 1,000 mls @ 100 mls/hr IV .Q10H HALLE Last Admin: 04/30/17 17:35 Dose: 100 mls/hr - Labs Labs: PT 12.2 SECONDS (9.4-12.5) 04/30/17 11:00 INR 1.06 (0.93-1.08) 04/30/17 11:00 APTT 31.7 Seconds (25.1-36.5) 04/30/17 11:00 Most Recent Lab Values WBC 7.4 10^3/ul (4.5-11.0) 04/30/17 11:00 RBC 4.46 10^6/uL (3.5-6.1) 04/30/17 11:00 Hgb 14.9 g/dL (14.0-18.0) 04/30/17 11:00 Hct 43.8 % (42.0-52.0) 04/30/17 11:00 MCV 98.2 fl (80.0-105.0) 04/30/17 11:00 MCH 33.4 pg (25.0-35.0) 04/30/17 11:00 MCHC 34.0 g/dl (31.0-37.0) 04/30/17 11:00 RDW 13.3 % (11.5-14.5) 04/30/17 11:00 Plt Count 144 10^3/uL (120.0-450.0) 04/30/17 11:00 MPV 10.8 fl (7.0-11.0) 04/30/17 11:00 Gran % 64.5 % (50.0-68.0) 04/30/17 11:00 Lymph % (Auto) 23.0 % (22.0-35.0) 04/30/17 11:00 Edmunds % (Auto) 10.6 % (1.0-6.0) H 04/30/17 11:00 Eos % (Auto) 1.6 % (1.5-5.0) 04/30/17 11:00 Baso % (Auto) 0.3 % (0.0-3.0) 04/30/17 11:00 Gran # 4.75 (1.4-6.5) 04/30/17 11:00 Lymph # (Auto) 1.7 (1.2-3.4) 04/30/17 11:00 Edmunds # (Auto) 0.8 (0.1-0.6) H 04/30/17 11:00 Eos # (Auto) 0.1 (0.0-0.7) 04/30/17 11:00 Baso # (Auto) 0.02 K/mm3 (0.0-2.0) 04/30/17 11:00 PT 12.2 SECONDS (9.4-12.5) 04/30/17 11:00 INR 1.06 (0.93-1.08) 04/30/17 11:00 APTT 31.7 Seconds (25.1-36.5) 04/30/17 11:00 Sodium 140 mmol/L (132-148) 04/30/17 11:00 Potassium 4.1 mmol/L (3.6-5.0) 04/30/17 11:00 Chloride 104 mmol/L (98-107) 04/30/17 11:00 Carbon Dioxide 26 mmol/L (21-33) 04/30/17 11:00 Anion Gap 14 (10-20) 04/30/17 11:00 BUN 13 mg/dL (7-21) 04/30/17 11:00 Creatinine 0.7 mg/dl (0.8-1.5) L 04/30/17 11:00 Est GFR ( Amer) > 60 04/30/17 11:00 Est GFR (Non-Af Amer) > 60 04/30/17 11:00 Random Glucose 130 mg/dL (70-110) H 04/30/17 11:00 Hemoglobin A1c 6.1 % (4.2-6.5) 04/30/17 11:00 Calcium 9.2 mg/dL (8.4-10.5) 04/30/17 11:00 Total Bilirubin 0.5 mg/dL (0.2-1.3) 04/30/17 11:00 AST 39 U/L (17-59) 04/30/17 11:00 ALT 60 U/L (7-56) H 04/30/17 11:00 Alkaline Phosphatase 39 U/L (38-126) 04/30/17 11:00 Lactate Dehydrogenase 540 U/L (333-699) 04/30/17 11:00 Total Creatine Kinase 124 U/L (35-230) 04/30/17 11:00 Troponin I < 0.01 ng/mL D 04/30/17 11:00 NT-Pro-B Natriuret Pep 201 pg/mL (0-450) 04/30/17 11:00 Total Protein 7.5 g/dL (5.8-8.3) 04/30/17 11:00 Albumin 4.1 g/dL (3.0-4.8) 04/30/17 11:00 Globulin 3.4 gm/dL 04/30/17 11:00 Albumin/Globulin Ratio 1.2 (1.1-1.8) 04/30/17 11:00 Triglycerides 68 mg/dL (35-160) 04/30/17 11:00 Cholesterol 157 mg/dL (130-200) 04/30/17 11:00 LDL Cholesterol Direct 108 mg/dL (0-129) 04/30/17 11:00 HDL Cholesterol 35 mg/dL (29-60) 04/30/17 11:00 Urine Color Light yellow (YELLOW) 04/30/17 11:00 Urine Appearance Clear (CLEAR) 04/30/17 11:00 Urine pH 6.0 (4.7-8.0) 04/30/17 11:00 Ur Specific [place] 1.015 (1.005-1.035) 04/30/17 11:00 Urine Protein Negative mg/dL (<30 mg/dL) 04/30/17 11:00 Urine Glucose (UA) Negative mg/dL (NEGATIVE) 04/30/17 11:00 Urine Ketones Negative mg/dL (NEGATIVE) 04/30/17 11:00 Urine Blood Negative (NEGATIVE) 04/30/17 11:00 Urine Nitrate Negative (NEGATIVE) 04/30/17 11:00 Urine Bilirubin Negative (NEGATIVE) 04/30/17 11:00 Urine Urobilinogen 0.2 E.U./dL (<1 E.U./dL) 04/30/17 11:00 Ur Leukocyte Esterase Negative Fernando/uL (NEGATIVE) 04/30/17 11:00 Blood Type A POSITIVE 04/30/17 11:00 Blood Type Confirm A POSITIVE 04/30/17 12:04 Antibody Screen Negative 04/30/17 11:00 BBK History Checked No verified bt 04/30/17 11:00 - Constitutional Appears: Well, No Acute Distress - Head Exam Head Exam: ATRAUMATIC, NORMAL INSPECTION, NORMOCEPHALIC - Eye Exam Eye Exam: Normal appearance - ENT Exam ENT Exam: Normal External Ear Exam - Neck Exam Neck Exam: Normal Inspection - Respiratory Exam Respiratory Exam: NORMAL BREATHING PATTERN - Cardiovascular Exam Cardiovascular Exam: absent: JVD - GI/Abdominal Exam GI & Abdominal Exam: absent: Distended - Rectal Exam Rectal Exam: Deferred - Exam Additional comments: Deferred. - Extremities Exam Extremities Exam: Normal Inspection - Back Exam Back Exam: NORMAL INSPECTION - Neurological Exam Neurological Exam: Altered Additional comments: Asleep now. - Psychiatric Exam Psychiatric exam: Normal Affect, Normal Mood - Skin Skin Exam: Normal Color Assessment and Plan - Assessment and Plan (Free Text) Assessment: Head ache. Left cerebellar early infarct changes. TIA/CVA. Prediabetic. History alcohol use. Plan: Tylenol 975 mg po x 1. Tylenol 975 mg po was ordered again, but patient was found to be resting comfortabley before it can be given. Patient was seen again. States that he has headache, on vertex , 8/10, no weakness, no paraesthesia. Also requests something for bowel movement because he had no BM for 4 days. Naprosyn and MOM were ordered.
[2017-05-01] MEDS: Sodium Chloride 0.9% 1,000 ML IV SCH ×4 (00:54→17:31)
--- NOTE | 2017-05-01 04:58 | HP ---
CHIEF COMPLAINT: Headache and dizziness. HISTORY OF PRESENT ILLNESS: Mr. 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 Patient today woke up and was having intractable headache and dizziness. Then his called ambulance. Blood pressure was elevated. No swelling of feet, no numbness, no tingling or palpitation. No chest pain. No rash. No neck pain. No hematuria or hematochezia. No fever. No chills. PAST MEDICAL HISTORY: Significant for bilateral lower extremity edema, prediabetic, herniated disk, history of weight loss. FAMILY HISTORY: Father and mother, noncontributory. Patient said that some of his family members with cancer. HABITS: Alcohol, yes. Substance abuse, no. Smoking, never smoked. ALLERGIES: THE PATIENT IS NOT ALLERGIC TO ANY MEDICATIONS. REVIEW OF SYSTEMS: Patient was seen and examined at the bedside, in his room, still having headache and dizziness. No fever, no chills. No focal weakness. No gait changes. No speech changes. No facial droop. No anxiety or depression. No hematochezia, no hematuria. PHYSICAL EXAMINATION: VITAL SIGNS: Temperature 98.6, pulse 66, respiratory rate 18, blood pressure /93, pulse oximetry 99. HEENT: Head: Normocephalic, atraumatic. Eyes: Closed. Nose patent. Mucous membranes moist. NECK: Supple. No carotid bruits, JVD or thyromegaly. CHEST: Bilaterally symmetrical. HEART: S1, S2 positive. LUNGS: Clear to auscultation. ABDOMEN: Soft. Bowel sounds present. No organomegaly. EXTREMITIES: No edema, no cyanosis. NEUROLOGICAL: The patient is awake and alert. Cranial nerves II through XII are grossly intact. Speech normal. Motor function is normal. Intact memory. LABORATORY DATA: White blood cells 7.4, hemoglobin 14.9, hematocrit 43.8, platelets 177. Sodium 140, potassium 4.1, BUN 13, creatinine 0.7, glucose 130. ASSESSMENT AND PLAN: Mr. Huey Bey is a 66-year-old male with hyperglycemia, history of blindness in one eye status post accident, history of swelling of the legs, family history of cancer, came with dizziness, headache, cerebral stroke syndrome, obesity, rule out obstructive sleep apnea syndrome. Gastric and deep vein thrombosis prophylaxes. Appreciated Dr. Enoch Dudley's input. As per Dr. Kendall, we gave loading dose of Plavix, high dose aspirin and put maintenance dose of aspirin 81 mg, that Dr. Kendall has trended, and 75 mg of Plavix. Patient will be admitted to Telemetry. We will call cardiology consult's office to make sure there is no arrhythmia. MRI and MRA of the head and neck without contrast, echocardiogram with bubble study. We will check hemoglobin A1c, lipids, TSH, B12, folic acid, and we will start Lipitor if LDL is more than 70. Physical therapy, gastric and deep vein thrombosis prophylaxis, repeat labs. We will follow up. Analy Blackburn MD
[2017-05-01] MEDS ORDERED: Magnesium Hydroxide Susp 30 ml UD PO STA (05:23)
[2017-05-01] MEDS ORDERED: Naproxen 550 mg Tab PO STA (05:23)
[2017-05-01 07:34] LABS: HEMOGLOBIN 14.7 g/dL (14.0-18.0); MEAN CELL VOLUME 98.4 fl (80.0-105.0); MEAN CORPUSCULAR HGB CONC 33.5 g/dl (31.0-37.0); MEAN PLATELET VOLUME 10.8 fl (7.0-11.0); RBC 4.46 10^6/uL (3.5-6.1); RED CELL DISTRIBUTION WIDTH 13.6 % (11.5-14.5); WHITE BLOOD COUNT 6.6 10^3/ul (4.5-11.0)
[2017-05-01 07:47] LABS: BLOOD UREA NITROGEN 11 mg/dL (7-21); CALCIUM 8.9 mg/dL (8.4-10.5); GFR AFRICAN-AMERICAN > 60; GFR NON-AFRICAN AMERICAN > 60; HDL CHOLESTEROL 29 mg/dL (29-60)
[2017-05-01 07:59] LABS: LDL CHOLESTEROL 103 mg/dL (0-129)
[2017-05-01 08:38] LABS: IRON 91 ug/dL (45-180)
[2017-05-01 08:48] LABS: % IRON SATURATION 33 % (20-55); TOTAL IRON BINDING CAPACITY 277 ug/dL (261-462)
--- NOTE | 2017-05-01 08:53 | CP.PCM.PN ---
Subjective - Date & Time of Evaluation Date of Evaluation: 05/01/17 Time of Evaluation: 07:10 - Subjective Subjective: Neuro progress note: Pt seen and examined at bedside. No acute events overnight. Patient complained of headache last night but denies of any symptoms right now. Denies any further episode of dizziness. No weakness of the extremities. 12 Point ROS performed and neg other than stated above Objective - Vital Signs/Intake and Output Vital Signs (last 24 hours): Temp Pulse Resp BP Pulse Ox 97.5 F L 50 L 18 132/80 95 05/01/17 06:00 05/01/17 06:00 05/01/17 06:00 05/01/17 06:00 05/01/17 06:00 - Medications Medications: Current Medications Aspirin (Aspirin Chewable) 81 mg PO DAILY HALLE Clopidogrel Bisulfate (Plavix) 75 mg PO DAILY HALLE Sodium Chloride (Sodium Chloride 0.9%) 1,000 mls @ 100 mls/hr IV .Q10H HALLE Last Admin: 05/01/17 04:15 Dose: 100 mls/hr - Labs Labs: 05/01/17 07:00 05/01/17 07:00 PT 12.2 SECONDS (9.4-12.5) 04/30/17 11:00 INR 1.06 (0.93-1.08) 04/30/17 11:00 APTT 31.7 Seconds (25.1-36.5) 04/30/17 11:00 - Constitutional Appears: No Acute Distress - Eye Exam Eye Exam: EOMI, PERRL Pupil Exam: NORMAL ACCOMODATION - Neurological Exam Neurological Exam: Alert, Awake, Oriented x3 Neuro motor strength exam: Left Upper Extremity: 5, Right Upper Extremity: 5, Left Lower Extremity: 5, Right Lower Extremity: 5 Additional comments: no dysmetria on [id number] Assessment and Plan - Assessment and Plan (Free Text) Assessment: 66 year old male presents with headache, dizziness, and balance difficulty found to have acute vs subacute left cerebellar infarct. -CT head for tomorrow morning to evaluate any progression of the stroke -Decadron 10mg x 1 to reduce cerebellar edema -Mg sulfate 2mg x 1 and Mg Ox 40mmg BID for headaches -MRI of the brain - acute vs subacute left cerebellar infarct -MRA of the head/neck without contrast - narrowing of proximal R ICA 55-60% f/u carotid a US -F/u Carotid US -F/u Echocardiogram with bubble study -Aspirin 325 loading dose and Plavix 300 loading dose, and continue Aspirin 81 mg daily and Plavix 75 mg daily for 21 days, per the CHANCE trial, and then continue only aspirin 81 mg monotherapy, daily. -Cont Lipitor 40 mg daily to maintain LDL< 70 mg/dL -Maintain BP < 140 systolic -PT/OT eval and treatment Case and plan was seen, reviewed, and discussed with Dr Dudley.
[2017-05-01] MEDS ORDERED: Magnesium Sulfate 2 GM in Sodium Chloride 0.9% 100 ML IVPB ONE (13:23)
[2017-05-01 17:07] LABS: FOLATE 13.4 ng/mL
--- NOTE | 2017-05-01 17:10 | CARD ---
APPROVED REPORT EXAM: Two-dimensional and M-mode echocardiogram with Doppler and color Doppler. INDICATION CVA/TIA 2D DIMENSIONS Left Atrium (2D)4.4 (1.6-4.0cm)IVSd1.3 (0.7-1.1cm) LVDd5.7 (3.9-5.9cm)PWd1.3 (0.7-1.1cm) LVDs4.6 (2.5-4.0cm)FS (%) 19.9 % LVEF (%)40.2 (>50%) M-Mode DIMENSIONS Aortic Root2.70 (2.2-3.7cm)Aortic Cusp Exc.2.10 (1.5-2.0cm) Aortic Valve AoV Peak Bmqcvwnv598.0cm/Elvis Peak GR.8mmHg Mitral Valve MV E Zhfljqxc593.0cm/sMV A Ctxfcwmg88.0cm/sE/A ratio1.3 TDI E/Lateral E'0.0E/Medial E'0.0 Tricuspid Valve TR Peak [id number]/sRAP [id number] Peak Gr.20mmHg [id number] LEFT VENTRICLE The left ventricle is normal size. There is mild concentric left ventricular hypertrophy. The systolic function is mildly impaired.EF-40-45% There is normal LV segmental wall motion. Transmitral Doppler flow pattern is Grade III-reversible restrictive diastolic dysfunction. No left ventricle thrombus noted on this study. There is no ventricular septal defect visualized. There is no left ventricular aneurysm. There is no mass noted in the left ventricle. RIGHT VENTRICLE The right ventricle is normal size. There is normal right ventricular wall thickness. The right ventricular systolic function is normal. ATRIA The left atrium is mildly dilated. The right atrium size is normal. The interatrial septum is intact with no evidence for an atrial septal defect. AORTIC VALVE The aortic valve is thickened but opens well. There is trace aortic regurgitation. There is no aortic valvular stenosis. There is no aortic valvular vegetation. MITRAL VALVE The mitral valve is thickened but opens well. Mitral regurgitation is trace. There is no mitral valve stenosis. There is no evidence of mitral valve prolapse. TRICUSPID VALVE The tricuspid valve leaflets are thickened , but open well. There is trace to mild tricuspid regurgitation.RVSP-30 mmofHg There is no tricuspid valve stenosis. There is no tricuspid valve prolapse or vegetation. PULMONIC VALVE The pulmonic valve is borderline thickened. There is trace pulmonic valvular regurgitation. There is no pulmonic valvular stenosis. GREAT VESSELS The aortic root is normal in size. The ascending aorta is normal in size. The pulmonary artery is normal. The IVC is normal in size and collapses >50% with inspiration. PERICARDIAL EFFUSION There is no pleural effusion. There is no pericardial effusion. <Conclusion> The left ventricle is normal size. There is mild concentric left ventricular hypertrophy. The systolic function is mildly impaired.EF-40-45% There is trace aortic regurgitation. Mitral regurgitation is trace. There is trace to mild tricuspid regurgitation.RVSP-30 mmofHg
[2017-05-01] MEDS: Magnesium Oxide 400 mg Tab UD PO SCH (17:30)
--- NOTE | 2017-05-01 19:14 | US ---
PROCEDURE: Bilateral carotid artery duplex ultrasound HISTORY: Carotid stenosis CVA PHYSICIAN(S): Bradford Willard MD. TECHNIQUE: Duplex sonography and color-flow Doppler were used to evaluate the carotid bifurcations and limited segments of the vertebral arteries bilaterally. FINDINGS: There is mild smooth heterogeneous plaque noted at the carotid bifurcations bilaterally. The peak systolic velocity in the proximal right internal carotid artery is 74 cm/sec. This corresponds to a 20 to 39% proximal right ICA stenosis. Normal systolic velocities are noted in the proximal right external carotid artery. There is antegrade flow in the right vertebral artery. The peak systolic velocity in the proximal left internal carotid artery is 54 cm/sec. This corresponds to a 20 to 39% proximal left ICA stenosis. Normal systolic velocities are noted in the proximal left external carotid artery. There is antegrade flow in the left vertebral artery. IMPRESSION: 1. Bilateral 20-39% proximal ICA stenoses. 2. Antegrade flow in both vertebral arteries.
--- NOTE | 2017-05-01 21:49 | CON ---
DATE: 05/01/2017 REASON FOR CONSULTATION AND FOLLOWUP: Cardiac evaluation, history of cerebrovascular accident, admitted with uncontrolled hypertension and headache. BRIEF CLINICAL HISTORY: This is a 66-year-old male with a past medical history significant for hypertension, pre-diabetic, history of CVA in the past, admitted with headache, found to have blood pressure 200/139, felt dizzy, so patient called the ambulance and was brought here. Blood pressure in the ER was 150/93. PAST MEDICAL HISTORY: Significant for obesity, pre-diabetic, hypertension, hyperlipidemia, history of recent weight loss. FAMILY HISTORY: Diabetes. SOCIAL HISTORY: Denies any smoking. Denies any history of alcohol abuse. PAST SURGICAL HISTORY: No significant past surgical history. ALLERGIES: NO KNOWN DRUG ALLERGIES. CURRENT MEDICATION: Patient is not taking any medication at home. PREVIOUS WORKUP: EKG shows normal sinus, left axis deviation. Patient was seen by us in August 2016 and a stress test was ordered as outpatient, but patient did not come for a stress test. Patient had a carotid artery ultrasound on 08/31/2016, bilateral carotid angiogram, 20%-39% stenosis noted. REVIEW OF SYSTEMS: As per HPI. PHYSICAL EXAMINATION: VITAL SIGNS: Temperature afebrile, heart rate is 48, blood pressure is 132/80. HEENT: PERRLA. Extraocular muscles are intact. NECK: Supple. No carotid bruit or thyromegaly. CHEST: Clear to auscultation. HEART: S1 and S2 regular. ABDOMEN: Soft. EXTREMITIES: Clubbing and cyanosis negative. LABORATORY DATA: WBC 6.6, hemoglobin 14.7, hematocrit 43.9 and platelet count 120. Chemistry shows sodium 139, potassium 4.0, chloride 105, carbon dioxide 24, anion gap of 14, BUN 11, creatinine 0.7. Triglyceride 145, cholesterol 153, LDL 103, HDL 29. TSH 1.45. Patient had a brain MRI done that shows an early acute left cerebral infract. No evidence of acute intracerebral bleed. IMPRESSION: Acute cerebrovascular accident; obesity; diabetes; uncontrolled hypertension, blood pressure before admitting at home, patient says it was 200/139; hyperlipidemia. Blood sugar is 130. Hemoglobin A1c is 6.1. RECOMMENDATION: We will get echo to assess LV function, lipid profile, TSH, hemoglobin A1c. Once acute stage subsides, consider stress test in 2 to 3 months for risk stratification; emphasized on weight reduction, modification of lifestyle, modification of risk factors and aggressive control of blood pressure and cholesterol as well as diabetes as the risk factors of coronary artery disease. We will follow with you. Thank you Dr. Blackburn for providing me the opportunity in taking care of the patient, Huey Bey. I discussed in length with the patient about plan, and we also Holter monitor because of the bradycardia, but not sure if secondary to some beta-zayda patient was taking at home, but we will get the Holter for 24 hours and we will get echo for now. Lesli Saenz MD
--- NOTE | 2017-05-02 03:24 | PN ---
DATE: SUBJECTIVE: The patient is a 66-year-old male. The patient was seen and examined at the bedside. Looking comfortable. Complaining about neck pain and headache. No nausea, vomiting, or diarrhea. No acute event happened overnight. Denies any further episode of dizziness. No weakness of the extremities. No fever, no chills. No hematuria or hematochezia. REVIEW OF SYSTEMS: A 12-point review of systems performed and negative other than the stated above. PHYSICAL EXAMINATION: VITAL SIGNS: Temperature 97.5, pulse 120/80 , respiratory rate 18, blood pressure 138/80, pulse oximetry 95. HEENT: Head: Normocephalic, atraumatic. Eyes: PERRLA. Extraocular muscles intact. Conjunctivae clear. Nose patent. Mucous membrane moist. NECK: Supple. No carotid bruits, JVD or thyromegaly. CHEST: Bilaterally symmetrical. HEART: S1 and S2 positive. LUNGS: Clear to auscultation. ABDOMEN: Soft. Bowel sounds positive. No organomegaly. EXTREMITIES: No edema. No cyanosis. NEUROLOGIC: The patient is awake and alert. Moving all four extremities. No focal deficits. MEDICATIONS: Aspirin, Plavix, NS. LABORATORY DATA: White blood cell is 6.6, hemoglobin 14.7, hematocrit 43.9 and platelets 120. Sodium noted , potassium 4.2, BUN 11, creatinine 0.7, glucose 113. ASSESSMENT AND PLAN: Mr. Huey Bey is a 66-year-old male with hyperglycemia, came with headache, dizziness, balance difficulty, found to have acute versus subacute left cerebral infarction. We will do CAT scan of the head tomorrow to see the progression of the stroke. Decadron 10 mg 1 dose to reduce the cerebral edema as per neurologist. Magnesium sulfate 2 g 1 dose and magnesium oxide 400 b.i.d.; for headache, MRI of the brain acute versus subacute left cerebral infarction. MRA of the head and neck without contrast. Narrowing of proximal right internal carotid artery 55% to 60%. Follow up carotid ultrasound study, follow up echocardiography with bubble study that will be done by Dr. Saenz. Loading dose aspirin given. Loading dose Plavix given and I will continue 81 mg aspirin and Plavix 75 mg for 21 days per the CHANCE trial and then continue only aspirin 81 for immunotherapy daily. Lipitor 40 mg. Out of bed. PT/OT. Length of time discussion done with Dr. Enoch Dudley. The patient by himself seen by Dr. Mcguire. Obesity; uncontrolled hypertension, at home, as per the patient, blood pressure was 200/139; hyperlipidemia. Hemoglobin A1c noted According to Dr. Saenz, he will do echocardiography and put Holter monitor and after 2 to 3 months he wants to do a stress test after recovery from stroke. We will put consult with GI, because as per the patient he is having bad constipation, change of bowel habits, has family history of pancreatic cancer. We will follow up. Analy Blackburn MD MTDD
[2017-05-02] MEDS: Sodium Chloride 0.9% 1,000 ML IV SCH (03:54)
--- NOTE | 2017-05-02 04:29 | CON ---
DATE: 05/01/2017 PULMONARY CONSULTATION REFERRING PHYSICIAN: Dr. Blackburn. REASON FOR CONSULTATION: Status post stroke, hypertension, may have sleep apnea syndrome. HISTORY OF PRESENT ILLNESS: This is a 66-year-old gentleman with past medical history significant for obesity, spine problems with herniated disk, also has a history of right vitreous hemorrhage in the past about 2 years ago with right eye blindness, comes into emergency room, not feeling well in the head, dizzy, unsteady on the feet, had a CT of the head done, which shows subacute versus chronic infarct. He originally was seen in the hospital, signed AMA, left; but on the morning of admission, had a severe headache; so MRI was done, which shows acute left cerebral infarct and several tiny and chronic-appearing lacunar type of infarcts scattered throughout deep and subcortical white matter, both cerebral hemispheres. Patient was seen by Neurology. Also, daytime sleepy and tired. Does not know if snores. PAST MEDICAL HISTORY: As per history of present illness. 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 Never smoked. He is denying any excessive alcohol use. ALLERGIES: NONE KNOWN. FAMILY HISTORY: No significant cardiopulmonary disease or thromboembolic disease reported. MEDICATIONS: He was loaded with Plavix. Magnesium IV was given. Also, received one dose of Decadron, presently on normal saline 100 mL per hour, Plavix 75 mg daily, magnesium oxide 400 mg twice a day, Lipitor 40 mg daily, lactulose mg daily, and aspirin 81 mg daily. REVIEW OF SYSTEMS: Has some headache. No rhinitis. No chest pain. No nausea. No vomiting. No diarrhea. Does not know if snores; daytime sleepy and tired though. No dysuria. No leg pain or leg swelling. PHYSICAL EXAMINATION: GENERAL: Lying in the bed, in no acute distress. VITAL SIGNS: Temp is 98, heart rate is 61, respiratory rate is 20, blood pressure 133/80, pulse ox 95% on room air. HEENT: Moist mucous membrane. Crowded airway. Mallampati score is IV. NECK: Supple. No JVD. LUNGS: Have fair airflow with rhonchi. HEART: S1, S2. ABDOMEN: Soft, nontender. No organomegaly. EXTREMITIES: No edema. NEUROLOGIC: Awake, alert. Follows simple command. LABORATORY DATA: Shows hemoglobin 14.7, hematocrit 43.9, WBC 6.6, platelet is 120. INR 1.06. PTT 32. Sodium 139, potassium 4.2, chloride 105, bicarbonate 24, BUN 11, creatinine 0.7, glucose 113, calcium is 8.9. Cholesterol is 153. B12 of 236. Folate is 13.4. TSH 1.43. Urinalysis is unremarkable. He had echocardiogram done, which shows LV ejection fraction of 40% to 45%, right ventricular systolic pressure is 30. Had MRA of the head done, which shows unremarkable MR angiography of the brain, no evidence of large aneurysm or vascular malformation noted. IMPRESSION AND PLAN: Cerebellar stroke, cardiomyopathy with decreased left ventricular function, hypertension, obesity, may have sleep apnea syndrome. Patient is on anti-platelets, being followed by Neurology. May need transesophageal echocardiogram to assure no cardiac thrombus. Sleep apnea precaution, avoid sedation. Keep head at 45 degrees. May use supplemental oxygen to titrate to pulse ox 92 and above. Also spoke to patient's in detail. All the questions answered. Thank you and we will follow with you. Lesli Sherwood MD
[2017-05-02 07:28] LABS: BASO # 0.01 K/mm3 (0.0-2.0); BASO % 0.1 % (0.0-3.0); GRAN # 10.34 (1.4-6.5); HEMOGLOBIN 15.4 g/dL (14.0-18.0); LYMPH # 0.9 (1.2-3.4); LYMPH % 7.6 % (22.0-35.0); MEAN CELL VOLUME 96.1 fl (80.0-105.0); MEAN CORPUSCULAR HEMOGLOBIN 33.4 pg (25.0-35.0); MEAN CORPUSCULAR HGB CONC 34.8 g/dl (31.0-37.0); MEAN PLATELET VOLUME 10.6 fl (7.0-11.0); MONO # 0.9 (0.1-0.6); MONO % 7.3 % (1.0-6.0); RBC 4.61 10^6/uL (3.5-6.1); RED CELL DISTRIBUTION WIDTH 13.1 % (11.5-14.5); WHITE BLOOD COUNT 12.2 10^3/ul (4.5-11.0)
[2017-05-02 07:43] LABS: ALB/GLOB RATIO 1.1 (1.1-1.8); ALT/SGPT 48 U/L (7-56); AST/SGOT 34 U/L (17-59); BLOOD UREA NITROGEN 14 mg/dL (7-21); CALCIUM 9.2 mg/dL (8.4-10.5); GFR AFRICAN-AMERICAN > 60; GFR NON-AFRICAN AMERICAN > 60; MAGNESIUM 2.4 mg/dL (1.7-2.2)
--- NOTE | 2017-05-02 09:05 | CT ---
PROCEDURE: CT HEAD WITHOUT CONTRAST. HISTORY: Evaluate L cerebellar infarct COMPARISON: MRI brain without contrast from 04/30/[address] from 04/28/2017. TECHNIQUE: Axial computed tomography images were obtained through the head/brain without intravenous contrast. Radiation dose: Total exam DLP = 1014.36 MGy-cm. This CT exam was performed using one or more of the following dose reduction techniques: Automated exposure control, adjustment of the mA and/or kV according to patient size, and/or use of iterative reconstruction technique. FINDINGS: HEMORRHAGE: No intracranial hemorrhage. BRAIN: There is redemonstration of a large left cerebellar hemisphere infarction with mild mass effect on the 4th ventricle without midline shift or herniation. VENTRICLES: No hydrocephalus. CALVARIUM: The skull base and calvarium are normal. PARANASAL SINUSES: Predominantly clear. MASTOID AIR CELLS: Predominantly clear. OTHER FINDINGS: None. IMPRESSION: Large left cerebellar hemisphere infarction with mild mass effect on the inferior 4th ventricle without evidence of midline shift, herniation or obstructive hydrocephalus. No evidence of hemorrhagic transformation.
[2017-05-02] MEDS: Magnesium Oxide 400 mg Tab UD PO SCH (09:57)
--- NOTE | 2017-05-02 12:40 | CP.PCM.PN ---
Subjective - Date & Time of Evaluation Date of Evaluation: 05/02/17 Time of Evaluation: 12:37 - Subjective Subjective: Mr. Bey was seen and examined at the bedside. He is alert, oriented in all spheres. He denies any headache, dizziness, lightheadedness, nausea,or vomiting. He is able to answer questions and recall the events prior to his stroke. He is able to follow simple commands. He moves all extremities spontaneously. Echocardiogram with bubble study showed mild LV hypertrophy, EF - 40-45%,trace of aortic, mitral, and tricuspid regurgitations.RVSP-30 mmHG.CTH of the head today showed large left cerebellar hemisphere infarction with mild mass effect on the inferior 4Th ventriclle without evidence of midlineshif, herniation,or obstructive hydrocephalus,No evidence of hemorrhagic transformation.There was no untoward events overnight. Objective - Vital Signs/Intake and Output Vital Signs (last 24 hours): Temp Pulse Resp BP Pulse Ox 97.9 F 66 22 124/62 93 L 05/02/17 12:00 05/02/17 12:00 05/02/17 12:00 05/02/17 12:00 05/02/17 05:46 Intake and Output: 05/02/17 05/02/17 06:59 18:59 Intake Total 3020 Output Total 1102 Balance 1918 - Medications Medications: Current Medications Aspirin (Aspirin Chewable) 81 mg PO DAILY [facility] Last Admin: 05/02/17 09:55 Dose: 81 mg Atorvastatin Calcium (Lipitor) 40 mg PO DIN [facility] Last Admin: 05/01/17 17:30 Dose: 40 mg Clopidogrel Bisulfate (Plavix) 75 mg PO DAILY [facility] Last Admin: 05/02/17 09:56 Dose: 75 mg Lactulose (Enulose) 30 gm PO DAILY PRN PRN Reason: Constipation Last Admin: 05/02/17 10:03 Dose: 30 gm Magnesium Oxide (Mag-Ox) 400 mg PO BID [facility] Last Admin: 05/02/17 09:57 Dose: 400 mg - Labs Labs: 05/02/17 07:00 05/02/17 07:00 PT 12.2 SECONDS (9.4-12.5) 04/30/17 11:00 INR 1.06 (0.93-1.08) 04/30/17 11:00 APTT 31.7 Seconds (25.1-36.5) 04/30/17 11:00 - Constitutional Appears: No Acute Distress - Head Exam Head Exam: NORMAL INSPECTION - Neurological Exam Neurological Exam: Alert, Awake Neuro motor strength exam: Left Upper Extremity: 5, Right Upper Extremity: 5, Left Lower Extremity: 5, Right Lower Extremity: 5 Additional comments: He is alert, oriented, follow simple commands. Sensation remains intact. Assessment and Plan (1) Ischemic stroke Assessment & Plan: Case discussedwith Dr. Dudley, continue allcurrent medical, physical, and occupational therapies. Cont. Lipitor 40 mg daily to maintain LDL< 70 mg/dL., Maintain BP < 140 systolic Status: Acute
--- NOTE | 2017-05-02 17:04 | CP.PCM.CON ---
<Starla Willams - Last Filed: 05/02/17 17:02> History of Present Illness - History of Present Illness History of Present Illness: This patient was seen and examined earlier this afternoon, chart reviewed. Request for GI consult is for change in bowel habits/constipation and family history of pancreatic cancer. 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 He came to the emergency room with complaints of headache and dizziness, he had a CT scan of the head on 04/28/17which showed hypodensity in the cerebellum, subacute versus chronic. Patient was advised to stay but left AMA. Next day patient woke up having intractable headache and dizziness, brought to the ER via ambulance.he then had a brain MRI on 04/30/17 which reported early/subacute infarct no hemorrhage. The patient complained of constipation, he had not had a bowel movement the past 2 days, patient states he was given a laxative and had a good bowel movement, no reports of any bleeding or bright red blood. Patient denies any recent history of constipation, he states that he takes an herbal medication Alipotec, which he used to take daily and stopped 2 months ago. He said it helps with his constipation and he also lost weight with this medication about 40 pounds. He had BM yestserday and was straining. Denies any blood per rectum, nausea, vomiting, dyspeptic symptoms or abdominal pain. He does endorse a family history of pancreatic cancer, his father was diagnosed at age 62 and 6 months later. The patient did not specify any specific complaints that the father had except for pains in the legs. Patient is concerned. 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, herniated disc Past surgical history: Denies Allergies: No known drug allergies Medications: Reviewed as per MAR, patient is now on Plavix Social history: Denies smoking, patient drinks alcohol socially, denies illicit drugs ROS: Systems reviewed and positive findings see HPI Past Patient History - Infectious Disease Hx of Infectious Diseases: None - Tetanus Immunizations Tetanus Immunization: Up to Date - Past Social History Smoking Status: Never Smoked - CARDIAC Hx Cardiac Disorders: No (bilateral lower extremity edema) Hx Angina: No Hx Cardia Arrhythmia: No Hx Circulatory Problems: No Hx Congestive Heart Failure: No Hx Heart Murmur: No Hx Heart Transplant: No Hx Hypertension: No Hx Internal Defibrillator: No Hx Mitral Valve Prolapse: No Hx Pacemaker: No Hx Peripheral Edema: No Hx Peripheral Vascular Disease: No - PULMONARY Hx Respiratory Disorders: No Hx Asthma: No Hx Bronchitis: No Hx Chronic Obstructive Pulmonary Disease (COPD): No Hx Emphysema: No Hx Pneumonia: No Hx Respiratory Aspiration: No Hx Respiratory Tract Infection: No Hx Sleep Apnea: No Hx Tuberculosis: No - NEUROLOGICAL Hx Neurological Disorder: No Hx Alzheimer's Disease: No HX Cerebrovascular Accident: No Hx Dementia: No Hx Dizziness: No Hx Meningitis: No Hx Migraine: No Hx Parkinson's Disease: No Hx Seizures: No Hx Transient Ischemic Attacks (TIA): No - HEENT Hx HEENT Problems: Yes (wears glasses) Hx Blind: No Hx Cataracts: No Hx Deafness: No Hx Difficulty Chewing: No Hx Epistaxis: No Hx Glaucoma: No Hx Macular Degeneration: No - RENAL Hx Chronic Kidney Disease: No Hx Dialysis: No Hx Kidney Stones: No Hx Neurogenic Bladder: No Hx Pyelonephritis: No Hx Renal (Kidney) Cancer: No Hx Renal Failure: No - ENDOCRINE/METABOLIC Hx Endocrine Disorders: Yes (pre diabetes) Hx Adrenal Cancer: No Hx Diabetes Insipidus: No Hx Diabetes Mellitus Type 1: No Hx Diabetes Mellitus Type 2: No Hx Hyperthyroidism: No Hx Hypothyroidism: No Hx Systemic Lupus Erythematosus: No - HEMATOLOGICAL/ONCOLOGICAL Hx Blood Disorders: No Hx AIDS: No Hx Anemia: No Hx Cancer: No Hx Chemotherapy: No Hx Cirrhosis: No Hx Hemophilia: No Hx Hepatitis A: No Hx Hepatitis B: No Hx Hepatitis C: No Hx Metastesis: No Hx Shingles: No Hx Sickle Cell Disease: No Hx Unexplained Bleeding: No - INTEGUMENTARY Hx Dermatological Problems: No Hx Basil Cell: No Hx Eczema: No Hx Melanoma: No Hx Psoriasis: No Hx Squamous Cell: No - MUSCULOSKELETAL/RHEUMATOLOGICAL Hx Musculoskeletal Disorders: Yes Hx Arthritis: No Hx Back Pain: No Hx Degenerative Joint Disease: No Hx Falls: Yes Hx Fractures: No Hx Gout: No Hx Herniated Disk: Yes Hx Myasthenia Gravis: No Hx Osteoarthritis: No Hx Osteomyelitis: No Hx Osteoporosis: No Hx Rhabdomyolysis: No Hx Spinal Stenosis: No Hx Unsteady Gait: No - GASTROINTESTINAL Hx Gastrointestinal Disorders: No Hx Colostomy: No Hx Crohn's Disease: No Hx Diverticulitis: No Hx Gall Bladder Disease: No Hx Gastroesophageal Reflux: No Hx Ileostomy: No Hx Liver Failure: No Hx Pancreatitis: No HX Swallowing Problems: No - GENITOURINARY/GYNECOLOGICAL Hx Genitourinary Disorders: No Hx Hematuria: No Hx Incontinence: No Hx Prostate Problems: No Hx Sexually Transmitted Disorders: No Hx Urinary Tract Infection: No - PSYCHIATRIC Hx Psychophysiologic Disorder: No Hx Depression: No Hx Emotional Abuse: No Hx Physical Abuse: No Hx Substance Use: No - SURGICAL HISTORY Hx Amputation: No Hx Appendectomy: No Hx Cardiac Catheterization: No Hx Cholecystectomy: No Hx Coronary Stent: No Hx Gastric Bypass Surgery: No Hx Hysterectomy: No Hx Joint Replacement: No Hx Kidney Transplant: No Hx Liver Transplant: No Hx Mastectomy: No Hx Musculoskeletal Surgery: No Hx Open Heart Surgery: No Hx Orthopedic Surgery: No Hx Splenectomy: No Hx Valve Replacement: No - ANESTHESIA Hx Anesthesia: No Hx Anesthesia Reactions: No Hx Malignant Hyperthermia: No Meds Allergies/Adverse Reactions: Allergies Allergy/AdvReac Type Severity Reaction Status Date / Time No Known Allergies Allergy Verified 04/30/17 10:23 - Medications Medications: Current Medications Aspirin (Aspirin Chewable) 81 mg PO DAILY [facility] Last Admin: 05/02/17 09:55 Dose: 81 mg Atorvastatin Calcium (Lipitor) 40 mg PO DIN [facility] Last Admin: 05/01/17 17:30 Dose: 40 mg Clopidogrel Bisulfate (Plavix) 75 mg PO DAILY [facility] Last Admin: 05/02/17 09:56 Dose: 75 mg Lactulose (Enulose) 30 gm PO DAILY PRN PRN Reason: Constipation Last Admin: 05/02/17 10:03 Dose: 30 gm Magnesium Oxide (Mag-Ox) 400 mg PO BID [facility] Last Admin: 05/02/17 09:57 Dose: 400 mg Ramipril (Altace) 1.25 mg PO DAILY [facility] Physical Exam - Constitutional Appears: No Acute Distress - Head Exam Head Exam: NORMOCEPHALIC - Eye Exam Eye Exam: Normal appearance. absent: Scleral icterus - ENT Exam ENT Exam: Mucous Membranes Moist - Neck Exam Neck exam: Positive for: Normal Inspection - Respiratory Exam Respiratory Exam: NORMAL BREATHING PATTERN. absent: Respiratory Distress - Cardiovascular Exam Cardiovascular Exam: +S1, +S2 - GI/Abdominal Exam GI & Abdominal Exam: Normal Bowel Sounds, Soft. absent: Guarding, Rebound, Tenderness Additional comments: obese - Extremities Exam Extremities exam: Positive for: pedal pulses present. Negative for: calf tenderness - Neurological Exam Neurological exam: Alert, Oriented x3 - Skin Skin Exam: Dry, Warm Results - Vital Signs Recent Vital Signs: Last Vital Signs Temp 97.9 F 05/02/17 12:00 Pulse 66 05/02/17 12:00 Resp 22 05/02/17 12:00 BP 124/62 05/02/17 12:00 Pulse Ox 93 L 05/02/17 05:46 - Labs Result Diagrams: 05/02/17 07:00 05/02/17 07:00 Labs: Laboratory Results - last 24 hr 05/01/17 05/01/17 05/01/17 07:00 16:12 21:24 WBC RBC Hgb Hct MCV MCH MCHC RDW Plt Count MPV Gran % Lymph % (Auto) [place] % (Auto) Eos % (Auto) Baso % (Auto) Gran # Lymph # (Auto) [place] # (Auto) Eos # (Auto) Baso # (Auto) Sodium Potassium Chloride Carbon Dioxide Anion Gap BUN Creatinine Est GFR ( Amer) Est GFR (Non-Af Amer) POC Glucose (mg/dL) 117 H 151 H Random Glucose Calcium Phosphorus Magnesium Total Bilirubin AST ALT Alkaline Phosphatase Total Protein Albumin Globulin Albumin/Globulin Ratio Prostate Specific Ag Vitamin B12 236 L Folate 13.4 05/01/17 05/02/17 05/02/17 22:59 07:00 07:00 WBC 12.2 H D RBC 4.61 Hgb 15.4 Hct 44.3 MCV 96.1 MCH 33.4 MCHC 34.8 RDW 13.1 Plt Count 162 MPV 10.6 Gran % 85.0 H Lymph % (Auto) 7.6 L [place] % (Auto) 7.3 H Eos % (Auto) 0.0 L Baso % (Auto) 0.1 Gran # 10.34 H Lymph # (Auto) 0.9 L [place] # (Auto) 0.9 H Eos # (Auto) 0.0 Baso # (Auto) 0.01 Sodium 140 Potassium 4.2 Chloride 104 Carbon Dioxide 26 Anion Gap 14 BUN 14 Creatinine 0.7 L Est GFR ( Amer) > 60 Est GFR (Non-Af Amer) > 60 POC Glucose (mg/dL) 168 H Random Glucose 126 H Calcium 9.2 Phosphorus 3.6 Magnesium 2.4 H Total Bilirubin 0.9 AST 34 ALT 48 Alkaline Phosphatase 45 Total Protein 7.5 Albumin 4.0 Globulin 3.5 Albumin/Globulin Ratio 1.1 Prostate Specific Ag Vitamin B12 Folate 05/02/17 05/02/17 05/02/17 07:28 11:14 12:50 WBC RBC Hgb Hct MCV MCH MCHC RDW Plt Count MPV Gran % Lymph % (Auto) [place] % (Auto) Eos % (Auto) Baso % (Auto) Gran # Lymph # (Auto) [place] # (Auto) Eos # (Auto) Baso # (Auto) Sodium Potassium Chloride Carbon Dioxide Anion Gap BUN Creatinine Est GFR ( Amer) Est GFR (Non-Af Amer) POC Glucose (mg/dL) 118 H 152 H Random Glucose Calcium Phosphorus Magnesium Total Bilirubin AST ALT Alkaline Phosphatase Total Protein Albumin Globulin Albumin/Globulin Ratio Prostate Specific Ag 0.4 Vitamin B12 Folate Assessment & Plan - Assessment and Plan (Free Text) Assessment: Assessment: CVA, head CT showed large left cerebral infarct Obesity, recent intendional 40 pound weight loss Change in bowel habit, constipation Family history of pancreatic cancer (father) Plan: Place on stool softener on Lactulose PRN May benefit from CT scan of abdomen and pelvis with IV and oral contrast,? Pancreatic protocol Discussed with patient and he would benefit from colonoscopy secondary to complaints of recent constipation, when optimal patient is on Plavix and has recent stroke. Thank you for this consult and for allowing us to participate in your patient's care, further recommendations based upon clinical course. Seen and discussed with Dr. Serra. <Kevon Serra V - Last Filed: 05/02/17 22:49> Results - Vital Signs Recent Vital Signs: Last Vital Signs Temp 98.9 F 05/02/17 17:23 Pulse 65 05/02/17 17:23 Resp 18 05/02/17 17:23 BP 158/89 H 05/02/17 17:23 Pulse Ox 92 L 05/02/17 17:23 - Labs Result Diagrams: 05/02/17 07:00 05/02/17 07:00 Labs: Laboratory Results - last 24 hr 05/01/17 05/02/17 05/02/17 22:59 07:00 07:00 WBC 12.2 H D RBC 4.61 Hgb 15.4 Hct 44.3 MCV 96.1 MCH 33.4 MCHC 34.8 RDW 13.1 Plt Count 162 MPV 10.6 Gran % 85.0 H Lymph % (Auto) 7.6 L [place] % (Auto) 7.3 H Eos % (Auto) 0.0 L Baso % (Auto) 0.1 Gran # 10.34 H Lymph # (Auto) 0.9 L [place] # (Auto) 0.9 H Eos # (Auto) 0.0 Baso # (Auto) 0.01 Sodium 140 Potassium 4.2 Chloride 104 Carbon Dioxide 26 Anion Gap 14 BUN 14 Creatinine 0.7 L Est GFR ( Amer) > 60 Est GFR (Non-Af Amer) > 60 POC Glucose (mg/dL) 168 H Random Glucose 126 H Calcium 9.2 Phosphorus 3.6 Magnesium 2.4 H Total Bilirubin 0.9 AST 34 ALT 48 Alkaline Phosphatase 45 Total Protein 7.5 Albumin 4.0 Globulin 3.5 Albumin/Globulin Ratio 1.1 Prostate Specific Ag 05/02/17 05/02/17 05/02/17 07:28 11:14 12:50 WBC RBC Hgb Hct MCV MCH MCHC RDW Plt Count MPV Gran % Lymph % (Auto) [place] % (Auto) Eos % (Auto) Baso % (Auto) Gran # Lymph # (Auto) [place] # (Auto) Eos # (Auto) Baso # (Auto) Sodium Potassium Chloride Carbon Dioxide Anion Gap BUN Creatinine Est GFR ( Amer) Est GFR (Non-Af Amer) POC Glucose (mg/dL) 118 H 152 H Random Glucose Calcium Phosphorus Magnesium Total Bilirubin AST ALT Alkaline Phosphatase Total Protein Albumin Globulin Albumin/Globulin Ratio Prostate Specific Ag 0.4 05/02/17 16:05 WBC RBC Hgb Hct MCV MCH MCHC RDW Plt Count MPV Gran % Lymph % (Auto) [place] % (Auto) Eos % (Auto) Baso % (Auto) Gran # Lymph # (Auto) [place] # (Auto) Eos # (Auto) Baso # (Auto) Sodium Potassium Chloride Carbon Dioxide Anion Gap BUN Creatinine Est GFR ( Amer) Est GFR (Non-Af Amer) POC Glucose (mg/dL) 102 Random Glucose Calcium Phosphorus Magnesium Total Bilirubin AST ALT Alkaline Phosphatase Total Protein Albumin Globulin Albumin/Globulin Ratio Prostate Specific Ag Attending/Attestation - Attestation I have personally seen and examined this patient.: Yes I have fully participated in the care of the patient.: Yes I have reviewed all pertinent clinical information: Yes Notes (Text): This is an addendum to GI progress report dictated by Starla Willams APN.The patient was seen and examined earlier. Medical records, lab studies, imagings were reviewed. Last 24 hours events reviewed. Agreed with the above treatment plan as outlined in Satrla Willams APN's notes the with the addition of the following 05/02/17 22:49
[2017-05-02 17:23] VITALS: BP 158/89; PULSE 65; RESP 18; TEMP 98.9; O2SAT 92
--- NOTE | 2017-05-02 17:39 | CP.PCM.PN ---
<Gia Oneal - Last Filed: 05/02/17 17:37> Subjective - Date & Time of Evaluation Date of Evaluation: 05/02/17 Time of Evaluation: 09:30 - Subjective Subjective: Cheif Complaint: Headache, dizziness 66 yr [place] male w/ Prediabetes, history of R vitreous hemorrage & R blindness from 2016 due to a traumatic injury. Pt went to [facility] ED on 04/28 and was found to have an abnormal CT of head but pt signed out AMA. Pt Admitted to [facility] for headache. Today, pt seen at bedside. He reports relief of recent constipation. Denies any chest pain, SOB, nausea, vomiting, diarrhea, paresthesias, or urinary changes. Objective - Vital Signs/Intake and Output Vital Signs (last 24 hours): Temp Pulse Resp BP Pulse Ox 98.9 F 65 18 158/89 H 92 L 05/02/17 17:23 05/02/17 17:23 05/02/17 17:23 05/02/17 17:23 05/02/17 17:23 Intake and Output: 05/02/17 05/02/17 06:59 18:59 Intake Total 3020 Output Total 1102 Balance 1918 - Medications Medications: Current Medications Aspirin (Aspirin Chewable) 81 mg PO DAILY [facility] Last Admin: 05/02/17 09:55 Dose: 81 mg Atorvastatin Calcium (Lipitor) 40 mg PO DIN [facility] Last Admin: 05/01/17 17:30 Dose: 40 mg Clopidogrel Bisulfate (Plavix) 75 mg PO DAILY [facility] Last Admin: 05/02/17 09:56 Dose: 75 mg Docusate Sodium (Colace) 100 mg PO BID [facility] Lactulose (Enulose) 30 gm PO DAILY PRN PRN Reason: Constipation Last Admin: 05/02/17 10:03 Dose: 30 gm Magnesium Oxide (Mag-Ox) 400 mg PO BID [facility] Last Admin: 05/02/17 09:57 Dose: 400 mg Ramipril (Altace) 1.25 mg PO DAILY [facility] - Labs Labs: 05/02/17 07:00 05/02/17 07:00 PT 12.2 SECONDS (9.4-12.5) 04/30/17 11:00 INR 1.06 (0.93-1.08) 04/30/17 11:00 APTT 31.7 Seconds (25.1-36.5) 04/30/17 11:00 - Constitutional Appears: Well - Head Exam Head Exam: ATRAUMATIC, NORMAL INSPECTION, NORMOCEPHALIC - Eye Exam Eye Exam: EOMI, Normal appearance, PERRL Pupil Exam: NORMAL ACCOMODATION, PERRL - ENT Exam ENT Exam: Mucous Membranes Moist, Normal Exam - Neck Exam Neck Exam: Full ROM, Normal Inspection. absent: Lymphadenopathy - Respiratory Exam Respiratory Exam: Clear to Ausculation Bilateral, NORMAL BREATHING PATTERN - Cardiovascular Exam Cardiovascular Exam: REGULAR RHYTHM, +S1, +S2. absent: Murmur - GI/Abdominal Exam GI & Abdominal Exam: Soft, Normal Bowel Sounds. absent: Tenderness - Extremities Exam Extremities Exam: Full ROM, Normal Capillary Refill, Normal Inspection. absent : Joint Swelling, Pedal Edema - Back Exam Back Exam: NORMAL INSPECTION - Neurological Exam Neurological Exam: Alert, Awake, Normal Gait, Oriented x3 - Psychiatric Exam Psychiatric exam: Normal Affect, Normal Mood - Skin Skin Exam: Dry, Intact, Normal Color, Warm Assessment and Plan (1) Constipated Status: Acute (2) Obesity Status: Acute (3) Cerebellar stroke syndrome Status: Acute (4) Dizziness Status: Acute (5) Headache Status: Acute - Assessment and Plan (Free Text) Plan: VTE/GI prophylaxis. PT/OT. Consults: Neuro - Dr. Dudley Cardio - Dr. Saenz Pulmo - Dr. Sherwood GI - Dr. Serra Review: MRI brain = L cerebellar infarcy changes, tiny chronic appearing lacunar infarcts scattered about the deep & subcortical white matter both cerebral hemispheres MRA head = WNL Neck MRA = narrowing of the proximal 50-55% Carotid US = bilateral 20-39% proximal ICA stenoses CT head = Large L cerebellar hemisphere infarction with mild mass effect on the 4th ventricle CXR = poor inspiration w low lung volumes, mild bibasilar atelectasis ECG = NSR, L axis deviation ECHO = mild concentric LVH, EF 40-45% <Analy Blackburn - Last Filed: 05/02/17 23:43> Objective - Vital Signs/Intake and Output Vital Signs (last 24 hours): Temp Pulse Resp BP Pulse Ox 98.9 F 65 18 158/89 H 92 L 05/02/17 17:23 05/02/17 17:23 05/02/17 17:23 05/02/17 17:23 05/02/17 17:23 - Labs Labs: 05/02/17 07:00 05/02/17 07:00 PT 12.2 SECONDS (9.4-12.5) 04/30/17 11:00 INR 1.06 (0.93-1.08) 04/30/17 11:00 APTT 31.7 Seconds (25.1-36.5) 04/30/17 11:00 Assessment and Plan - Assessment and Plan (Free Text) Plan: 66 yr [place] male w/ Prediabetes, history of R vitreous hemorrage & R blindness from 2016 due to a traumatic injury. Pt went to [facility] ED on 04/28 and was found to have an abnormal CT of head but pt signed out AMA. Pt Admitted to [facility] for headache. Today, pt seen at bedside. He reports relief of recent constipation. Denies any chest pain, SOB, nausea, vomiting, diarrhea, paresthesias, or urinary changes. ptnis seen and examined at bed side , looking comfortable , agreed all above , chart , meds and labs noted , will f/u d/d with staff and juvenile justice specialist
--- NOTE | 2017-05-02 20:14 | PN ---
DATE: 05/02/2017 REASON FOR CONSULTATION AND FOLLOWUP: Cardiac evaluation, history of cerebrovascular accident, admitted with uncontrolled hypertension and headache. SUBJECTIVE: The patient denies any chest pain, shortness of breath or any palpitations. Does not want to do CAT scan because a friend told that a repeat CAT scan can get cancer. Tried to convince the patient talking length, ultimately patient agreed for repeat CAT scan. PHYSICAL EXAMINATION: As follows: VITAL SIGNS: Temperature afebrile, heart rate 60, blood pressure 124/62. HEENT: PERRLA. Extraocular muscles intact. NECK: Supple. No carotid bruit or thyromegaly. CHEST: Clear to auscultation. HEART: S1, S2, regular. ABDOMEN: Soft. EXTREMITIES: Clubbing and cyanosis negative. LABORATORY DATA: Blood workup as follows: WBC 12.2, hemoglobin 15.4, hematocrit 44.3, platelet count 162. Chemistry shows sodium 140, potassium 4.2, chloride 104, carbon dioxide 23, anion gap of 14, BUN 40, creatinine 0.7, total protein 7.5, albumin , albumin-globulin ratio 1.1. IMPRESSION: Morbid obesity, uncontrolled hypertension, bilateral carotids 29% stenosis. Patient was not willing for the CAT scan because patient was concerned a friend told him that too much CAT scan can give cancer, explained the patient at length, ultimately patient agreed for CAT scan and called the transporter, sent the patient for CAT scan that showed left large cerebral hemisphere infarct with mild mass effect on fourth ventricle without evidence of midline shift or hydrocephalus. No evidence of hemorrhage transformation. Patient had echocardiography done yesterday with bubble study was done, negative, no patent foramen ovale by bubble study. Ejection fraction 40% to 45%, trace mitral regurgitation, [id number] tricuspid regurgitation, obesity, hypertension and uncontrolled mild cardiomyopathy. RECOMMENDATION: Continue atorvastatin, continue aspirin as per Neurology. We will add low dose of SONAM inhibitors because of decreased LV function. We will follow with you. I will increase blood pressure as tolerated. Thank you, Dr. Blackburn, provide us the opportunity in taking care of patient. Lesli Saenz MD [facility] # [id number]
--- NOTE | 2017-05-02 21:34 | PN ---
DATE: 05/02/2017 PULMONARY PROGRESS NOTE REFERRING PHYSICIAN: Analy Blackburn MD SUBJECTIVE: He is lying in the bed with head at 45 degrees. No headache. No rhinitis. No nausea. No vomiting. No diarrhea. No leg pain or leg swelling. Wants to go home. OBJECTIVE: GENERAL: In no acute distress. VITAL SIGNS: Temp is 98, heart rate is 65, respiratory rate is 20, blood pressure 158/89, pulse ox 93% on room air. HEENT: Moist mucous membranes. Crowded airway. Mallampati score is 4. NECK: Supple. No JVD. LUNGS: Have fair airflow with rhonchi. HEART: S1 and S2. ABDOMEN: Soft, nontender. No organomegaly. EXTREMITIES: There is no edema. NEUROLOGIC: Awake, alert, follow simple commands. MEDICATIONS: Reviewed and noted no new changes in the medications since yesterday. LABORATORY DATA: Review shows hemoglobin 15.4, hematocrit 44.3, WBC 12.2, platelet count is 152. Sodium 140, potassium 4.2, chloride 104, bicarbonate is 26, BUN 14, creatinine 0.7, glucose 102, calcium is 9.2, phosphorus 3.6, magnesium 2.4. AST 34, ALT 48, alk phos is 45, albumin is 4.0. PSA is 0.4. CAT scan of the head done today show large left cerebellar hemisphere infarct with mild mass effect on inferior fourth ventricle without evidence of midline shift, herniation or obstructive hydrocephalus. No evidence of hemorrhagic transformation. IMPRESSION AND PLAN: Cerebellar stroke, cardiomyopathy with decreased left ventricular function, hypertension, obesity, may have sleep apnea syndrome. I had a long discussion with the patient about his disease, still needs further workup to rule out thromboembolic phenomena, still have no source, cardiac is one possibility. Patient needs further workup, also will need attended sleep study upon discharge as outpatient. Fall precaution, high risk for fall. Thank you and we will follow with you. Lesli Sherwood MD
[2017-05-03 08:32] LABS: TOTAL PSA 0.3 ng/mL (< or = 4.0)
--- NOTE | 2017-05-05 14:15 | CARD ---
APPROVED REPORT Reason for Test: R/O ARRHYTHMIA Hookup date: 2017-05-01 Scan date: 2017-05-02 Recording time: 23 HR 59 MIN Heart Rate Data Total Beats: 14117 Min HR: 46 BPM at 4:01AM Avg HR: 69 BPM Max HR: 113 BPM at 6:17AM Ventricular Ectopy Total VE Beats: 12 (0.0%) Single/Interp PVC: 12/0 Supraventricular Ectopy Total VE Beats: 22 (0.0%) Longest R-R: 1.8 sec at 6:17 AM Single PAC's: 22 Atrial Fibrillation AFib Beats: 91 (0.1%) Duration: 1.0 min Events: 1 Conclusion SINUS RHYTHM / SINUS BRADYCARDIA 1 RUN AF, 113 BPM MINIMUM HR 46 BPM MAXIMUM HR 113 BPM ISOLATED APC'S ISOLATED VPC'S THERE WERE NO DIARY ENTRIES.
== END 2017-05-02 18:42 | disposition left against medical advice (07) | DRG 64 ==
LOC: ED 09:50 → ERH 14:56 → 3RSO 17:31
PROVIDERS: ADMIT Internal Medicine; ATTEND Internal Medicine
DX: I63.9 Cerebral infarction, unspecified (principal); G93.6 Cerebral edema; I42.9 Cardiomyopathy, unspecified; I08.1 Rheumatic disorders of both mitral and tricuspid valves; E66.01 Morbid (severe) obesity due to excess calories; I10 Essential (primary) hypertension; I65.23 Occlusion and stenosis of bilateral carotid arteries; R73.03 Prediabetes; R29.702 NIHSS score 2; K59.00 Constipation, unspecified; E78.5 Hyperlipidemia, unspecified; H54.61 Unqualified visual loss, right eye, normal vision left eye; G47.30 Sleep apnea, unspecified; Z68.36 Body mass index [BMI] 36.0-36.9, adult; Z80.0 Family history of malignant neoplasm of digestive organs